=== PATIENT | female | born 1960 | race Caucasian/White ===

== ENCOUNTER 2019-11-05 16:59 | Inpatient (IN) | payer MEDICAID ==
[~2019-11-05] VITALS: Ht 157.5 cm; Wt 85.3 kg
[2019-11-06] VITALS (7 sets, daily range): BP systolic 99–110; BP diastolic 65–76
[2019-11-06] MEDS ORDERED: LORazepam 0.5 MG TAB PO ONE
[2019-11-06] MEDS ORDERED: levoFLOXacin 250 MG TAB PO ONE
[2019-11-06] MEDS ORDERED: LORazepam 2MG/ML-1ML VIAL IM ONE (02:00)
[2019-11-06 02:10] LABS: Alanine Aminotransferase 359 U/L (13-56); Albumin 3.4 g/dL (3.4-5.0); Anion Gap 27 (5-15); Aspartate Aminotransferase 682 U/L (15-37); BUN/Creatinine Ratio 23.6; Blood Urea Nitrogen 42 mg/dL (7-18); Calcium 9.1 mg/dL (8.5-10.1); Chloride 95 mmol/L (98-107); GFR African American 37 mL/min; GFR Non-African American 31 mL/min; Potassium 5.1 mmol/L (3.5-5.1); Sodium 128 mmol/L (136-145)
[2019-11-06 02:13] LABS: Alkaline Phosphatase 148 U/L (45-117); Total Protein 7.2 g/dL (6.4-8.2)
[2019-11-06 02:18] LABS: Basophils # (auto) 0 10 ^3/uL (0-0.2); Eosinophils # (auto) 0 10 ^3/uL (0-0.8); Eosinophils % (auto) 0.1 % (0.0-7.0); Lymphocytes # (auto) 0.8 10 ^3/uL (0.4-5.4); Mean Corpuscular Hgb Conc. 28.5 g/dL (32.0-36.0)
[2019-11-06 02:20] LABS: Basophils % (auto) 0.1 % (0.0-2.0); Hemoglobin 14.5 g/dL (12.2-16.2); Lymphocytes % (auto) 6.3 % (10.0-50.0); Mean Corpuscular Hemoglobin 29.8 pg (28.0-32.0); Mean Corpuscular Volume 104.6 fL (80.0-100.0); Monocytes # (auto) 0.6 10 ^3/uL (0-1.3); Monocytes % (auto) 4.3 % (0.0-12.0); Neutrophils # (auto) 11.4 10 ^3/uL (1.6-8.6); Neutrophils % (auto) 89.2 % (37.0-80.0); Nucleated Red Blood Cells % 0.4 %; Platelet Count (auto) 195 10^3/uL (140-450); Red Blood Cells 4.88 10^6/uL (4.0-5.20); Red Cell Distribution Width 17.7 % (11.8-14.3); White Blood Cell 12.8 10^3/uL (4.4-10.8)
[2019-11-06 02:22] LABS: Lactic Acid w/Reflex 16.4 mmol/L (0.4-2.0)
[2019-11-06 02:23] LABS: Carbon Dioxide 6 mmol/L (21-32); Glucose 40 mg/dL (74-106)
[2019-11-06] MEDS ORDERED: DEXTROSE 50% SYRINGE 50 ML IV ONE (02:28)
[2019-11-06] MEDS ORDERED: DEXTROSE (50%) 50ML SYRG IV ONE (02:45)
[2019-11-06] MEDS ORDERED: SODIUM BICARBONATE 8.4% INJ 50ML SYRINGE ONE ×2 (03:10→06:38)
[2019-11-06] MEDS ORDERED: SODIUM CHLORIDE 0.9% 2,000 ML IV ONE (03:15)
[2019-11-06] MEDS ORDERED: SODIUM BICARBONATE 8.4 % INJ 50ML VIAL IV ONE (03:15)
[2019-11-06] MEDS ORDERED: FUROSEMIDE 20 MG/2 ML VIAL ONE (03:42)
[2019-11-06] MEDS ORDERED: VANCOMYCIN 1GM/250ML 250 ML IV ONE (03:45)
[2019-11-06] MEDS ORDERED: FUROSEMIDE 20 MG/2 ML VIAL IV ONE ×2 (03:45→14:00)
[2019-11-06] MEDS ORDERED: cefTRIAXone 1GM/50ML D5W 50 ML IV ONE (03:45)
[2019-11-06] MEDS ORDERED: D5W/SOD CHLO 0.9% 1,000 ML IV ONE (03:45)
[2019-11-06] MEDS ORDERED: SUCCINYLCHOLINE CHLORIDE 20 MG/ML 10ML VIAL IV ONE ×2 (04:12→04:15)
[2019-11-06] MEDS ORDERED: ETOMIDATE (2MG/ML) 20ML VIAL IV ONE ×2 (04:12→04:15)
[2019-11-06] MEDS: MIDAZOLAM DRIP 50 mg/50mL 50 ML IV SCH ×2 (04:45→22:52)
[2019-11-06 05:04] LABS: Urine Amorphous Crystal FEW /hpf (None Seen); Urine Bacteria MOD /hpf (None Seen); Urine Blood 2+ /uL (Negative); Urine Hyaline Cast MANY /lpf (0 - 2); Urine Mucus FEW (None Seen); Urine Specific Gravity 1.023 (1.001-1.035); Urine WBC 20 /hpf (0 - 5)
[2019-11-06] MEDS ORDERED: SODIUM BICARBONATE 50ML VIAL 100 ML in SOD CHL 0.45% 1,000 ML IV SCH (05:15)
[2019-11-06] MEDS ORDERED: ONDANSETRON HCL 4 MG/2 ML VIAL IV PRN (05:15)
[2019-11-06] MEDS ORDERED: NITROGLYCERIN 0.4 MG SL TAB SL PRN (05:15)
[2019-11-06] MEDS ORDERED: VANCOMYCIN PER PHARMACY 0 MG IV SCH (05:15)
[2019-11-06] MEDS ORDERED: DEXTROSE (50%) 50ML SYRG IV PRN (05:15)
[2019-11-06] MEDS ORDERED: MORPHINE SULF INJ 2 MG/ML SYRINGE 1ML IV PRN (05:15)
[2019-11-06 06:00] LABS: Alcohol, Urine < 3.0 mg/dL (0-10); Amphetamine Screen, Urine NEGATIVE (NEGATIVE); Barbiturate Scree,Urine NEGATIVE (NEGATIVE); Benzodiazephine Screen, Urine POSITIVE (NEGATIVE); Cannabinoid Screen, Urine NEGATIVE (NEGATIVE); Cocaine Screen, Urine NEGATIVE (NEGATIVE); Opiate Scree,Urine NEGATIVE (NEGATIVE); Phencyclidine Screen, Urine NEGATIVE (NEGATIVE)
[2019-11-06] MEDS: InsuLIN REG 1unit/0.01ml Soln (100units/ml) SC SCH ×3 (06:00→18:21)
[2019-11-06] MEDS: ACCU-CHEK COMFORT CURVE STRIP VI SCH ×4 (06:10→23:52)
[2019-11-06] MEDS: D5W/SOD CHLO 0.9% 1,000 ML IV SCH ×2 (06:12→08:27)
[2019-11-06] MEDS: PIPERACILLIN-TAZOB 2.25GM 50 ML IV SCH ×3 (08:26→18:20)
[2019-11-06] MEDS: NOREPINEPHRINE 8 MG/250ML KIT 250 ML IV SCH (08:27)
--- NOTE | 2019-11-06 09:45 | NUR ---
WOUND CARE NOTE: PATIENT NOTED TO BE INTUBATED, SEDATED IN ER, AIRBORNE ISOLATION. ADDED PATIENT TO SKIN INTEGRITY MONITORING. PATIENT'S JAMAL SCORE ASSESSED AT 10. PATIENT RESTING ON ICU LOW AIRLOSS BED. SKIN/WOUND CARE PLAN IMPLEMENTED. PER BEDSIDE NURSE, PATIENT HAS NO SKIN ISSUES. SHE WOULD BENEFIT FROM: FREQUENT TURN SCHEDULE Q 2HOURS, PRN CONDITION PERMITS, WITH PRESSURE REDISTRIBUTION USING PILLOWS/WEDGES, BID/PRN APPLICATION WITH MOISTURE BARRIER CREAM, OPTIFOAM GENTLE SACRAL DRESSING PREVENTATIVE, DIETARY CONSULT FOR INTUBATION STATUS, SKIN/WOUND CARE PLAN, CONTINUED MONITORING BY WOUND CARE TEAM.
[2019-11-06] MEDS ORDERED: Jevity 1.2 Cal/Fiber 1 Liter GT SCH (11:45)
[2019-11-06 11:57] LABS: Hematocrit 37.9 % (36.0-46.0); Hemoglobin 12.1 g/dL (12.2-16.2); Mean Corpuscular Hemoglobin 29.8 pg (28.0-32.0); Mean Corpuscular Hgb Conc. 31.9 g/dL (32.0-36.0); Mean Corpuscular Volume 93.2 fL (80.0-100.0); Platelet Count (auto) 127 10^3/uL (140-450); Red Blood Cells 4.07 10^6/uL (4.0-5.20); White Blood Cell 11.7 10^3/uL (4.4-10.8)
[2019-11-06 11:58] LABS: Band Neutrophils % (manual) 0; Basophils % (manual) 0 (0.0-2.0); Blast Cells 0; Eosinophils % (manual) 0 (0-7); Metamyelocytes % 0; Monocytes % (manual) 0 (0-12); Promyelocytes % 0; Reactive Lymphocytes 0
[2019-11-06 12:15] LABS: Calcium 7.7 mg/dL (8.5-10.1); Potassium 4.7 mmol/L (3.5-5.1)
[2019-11-06 12:23] LABS: Lymphocytes % (manual) 9 (10.0-50.0); Myelocytes % 1
[2019-11-06 12:27] LABS: INR 2.97 (0.9-1.15); Partial Thromboplastin Time 48.4 sec (23.64-32.05)
[2019-11-06 12:34] LABS: Albumin 2.6 g/dL (3.4-5.0); BUN/Creatinine Ratio 31.7; Bilirubin, Total 3.3 mg/dL (0.2-1.0); Total Protein 5.4 g/dL (6.4-8.2)
[2019-11-06] MEDS: DOBUTamine 1000MCG/ML 250 ML IV SCH (14:00)
[2019-11-06] MEDS ORDERED: ENOXAPARIN SOD 80 MG/0.8ML SYRINGE SC ONE (14:15)
[2019-11-06 15:09] LABS: Magnesium 2.2 mg/dL (1.6-2.6)
[2019-11-06] MEDS: fentaNYL Drip 2500mCg/250mlNS 250 ML IV SCH (15:09)
[2019-11-06] MEDS ORDERED: D5W/SOD CHLO 0.9% 1,000 ML IV SCH (16:30)
[2019-11-06] MEDS: FUROSEMIDE 20 MG/2 ML VIAL IV SCH (18:19)
[2019-11-07] VITALS (38 sets, daily range): BP systolic 89–115; BP diastolic 50–75
[2019-11-07] MEDS: PIPERACILLIN-TAZOB 2.25GM 50 ML IV SCH ×4 (00:06→18:03)
[2019-11-07] MEDS: InsuLIN REG 1unit/0.01ml Soln (100units/ml) SC SCH ×4 (00:06→18:09)
[2019-11-07] MEDS: DOBUTamine 1000MCG/ML 250 ML IV SCH ×3 (00:42→17:12)
[2019-11-07 01:26] LABS: Albumin 2.5 g/dL (3.4-5.0); BUN/Creatinine Ratio 37.7; Calcium 7.5 mg/dL (8.5-10.1); Potassium 3.3 mmol/L (3.5-5.1)
[2019-11-07 01:34] LABS: Bilirubin, Total 3.5 mg/dL (0.2-1.0); Total Protein 5.4 g/dL (6.4-8.2)
[2019-11-07] MEDS: MIDAZOLAM DRIP 50 mg/50mL 50 ML IV SCH ×5 (03:05→19:31)
[2019-11-07] MEDS: NOREPINEPHRINE 8 MG/250ML KIT 250 ML IV SCH ×2 (04:12→12:08)
[2019-11-07] MEDS: ACCU-CHEK COMFORT CURVE STRIP VI SCH ×3 (05:36→18:08)
[2019-11-07] MEDS: FUROSEMIDE 20 MG/2 ML VIAL IV SCH ×2 (05:59→18:03)
[2019-11-07] MEDS: VANCOMYCIN 1GM/250ML 250 ML IV SCH (06:00)
[2019-11-07 06:08] LABS: Basophils # (auto) 0.1 10 ^3/uL (0-0.2); Basophils % (auto) 1.1 % (0.0-2.0); Eosinophils # (auto) 0 10 ^3/uL (0-0.8); Hematocrit 42.1 % (36.0-46.0); Hemoglobin 13.7 g/dL (12.2-16.2); Lymphocytes # (auto) 0.3 10 ^3/uL (0.4-5.4); Lymphocytes % (auto) 2.8 % (10.0-50.0); Mean Corpuscular Hemoglobin 29.9 pg (28.0-32.0); Mean Corpuscular Hgb Conc. 32.4 g/dL (32.0-36.0); Mean Corpuscular Volume 92.3 fL (80.0-100.0); Monocytes # (auto) 0.3 10 ^3/uL (0-1.3); Monocytes % (auto) 3.2 % (0.0-12.0); Neutrophils % (auto) 92.9 % (37.0-80.0); Nucleated Red Blood Cells % 0.5 %; Platelet Count (auto) 105 10^3/uL (140-450); Red Blood Cells 4.56 10^6/uL (4.0-5.20); White Blood Cell 10.7 10^3/uL (4.4-10.8)
[2019-11-07] MEDS: POTASSIUM CHL 20MEQ/100ML 100 ML IV SCH ×3 (08:44→12:09)
[2019-11-07] MEDS: ENOXAPARIN SOD 80 MG/0.8ML SYRINGE SC SCH (08:56)
[2019-11-07] MEDS: CARVEDILOL 3.125 MG TAB PO SCH ×2 (08:57→22:00)
[2019-11-07] MEDS ORDERED: FUROSEMIDE 20 MG/2 ML VIAL IV SCH (10:00)
[2019-11-07] MEDS: POTASSIUM EFFERVESENT TAB 25 MEQ PO SCH ×2 (10:14→22:00)
[2019-11-07] MEDS: PANTOPRAZOLE 40 MG/10 ML VIAL INJ IV SCH ×2 (10:14→22:00)
[2019-11-07] MEDS ORDERED: PROPOFOL 100 ML IV ONE (11:30)
[2019-11-07] MEDS: PROPOFOL 100 ML IV SCH ×2 (11:41→17:12)
[2019-11-07] MEDS: fentaNYL Drip 2500mCg/250mlNS 250 ML IV SCH ×2 (15:09→20:05)
--- NOTE | 2019-11-07 15:39 | NUR ---
Nutrition Consult/assessment Notes Please see attached link for complete assessment [employer] needs ABW 65 [id number] kcals (23-25 kcal/kgABW), Est Protein needs: 65-71 gms/day (1.0-1.1 gm/kgABW). Will continue to monitor and reassess prn. Rec: EN support with Osmolite @ 55 ml/hr per MD approval Addendum: 11/07/19 at [address] Amended: Links added.
--- NOTE | 2019-11-07 16:30 | NUR ---
RT Transport Note: Patient transported to ICU 112 with RN CHUY LOJA. Patient transported to and from procedure on ventilator with previous ordered settings. Patient on playground monitor with alarms set and audible, ambu-bag/mask connected to 02 tank. Patient returned to room with no adverse reaction noted. Transport completed without incident.
--- NOTE | 2019-11-07 16:42 | NUR ---
Admit to ICU from ER on vent ARVIND LANDAVERDEAadmitted to ICU via gurney on fish net maker, intubated and being bagged by Respiratory Therapist. Patient transfered to bed, connected to mechanical ventilator by therapist, CIARAN at bedside. Patient connected to ICU monitoring, weighed by bedscale, oriented to Felice shepard RN, unit, ventilator and sedation.
--- NOTE | 2019-11-07 20:24 | NUR ---
report report given to GURJIT Arechiga
[2019-11-07] MEDS ORDERED: POTASSIUM EFFERVESENT TAB 25 MEQ GT SCH (22:00)
[2019-11-08] VITALS (102 sets, daily range): BP systolic 83–119; BP diastolic 59–78
[2019-11-08] MEDS: InsuLIN REG 1unit/0.01ml Soln (100units/ml) SC SCH ×4 (00:09→17:55)
[2019-11-08] MEDS: DOBUTamine 1000MCG/ML 250 ML IV SCH (04:00)
[2019-11-08 04:21] LABS: Basophils # (auto) 0 10 ^3/uL (0-0.2); Basophils % (auto) 0.1 % (0.0-2.0); Eosinophils # (auto) 0 10 ^3/uL (0-0.8); Eosinophils % (auto) 0.2 % (0.0-7.0); Hematocrit 40.3 % (36.0-46.0); Hemoglobin 13.2 g/dL (12.2-16.2); Lymphocytes # (auto) 0.6 10 ^3/uL (0.4-5.4); Lymphocytes % (auto) 5.3 % (10.0-50.0); Mean Corpuscular Hemoglobin 29.6 pg (28.0-32.0); Mean Corpuscular Hgb Conc. 32.6 g/dL (32.0-36.0); Mean Corpuscular Volume 90.7 fL (80.0-100.0); Monocytes # (auto) 0.5 10 ^3/uL (0-1.3); Monocytes % (auto) 3.9 % (0.0-12.0); Neutrophils # (auto) 10.8 10 ^3/uL (1.6-8.6); Neutrophils % (auto) 90.5 % (37.0-80.0); Nucleated Red Blood Cells % 0.1 %; Platelet Count (auto) 122 10^3/uL (140-450); Red Blood Cells 4.44 10^6/uL (4.0-5.20); White Blood Cell 11.9 10^3/uL (4.4-10.8)
[2019-11-08 04:41] LABS: Albumin 2.1 g/dL (3.4-5.0); Calcium 7.3 mg/dL (8.5-10.1); Potassium 4.8 mmol/L (3.5-5.1)
[2019-11-08 04:45] LABS: BUN/Creatinine Ratio 30.2; Total Protein 5.1 g/dL (6.4-8.2)
[2019-11-08] MEDS: PIPERACILLIN-TAZOB 2.25GM 50 ML IV SCH ×4 (05:13→17:45)
[2019-11-08] MEDS: MIDAZOLAM DRIP 50 mg/50mL 50 ML IV SCH ×2 (05:16→22:31)
[2019-11-08] MEDS: FUROSEMIDE 20 MG/2 ML VIAL IV SCH ×2 (05:32→17:46)
[2019-11-08] MEDS: ACCU-CHEK COMFORT CURVE STRIP VI SCH ×4 (05:39→17:46)
--- NOTE | 2019-11-08 08:00 | NUR ---
Cooling Measures applied. Patient currently has temp of 100.9 , cooling measures in place.
[2019-11-08] MEDS: VANCOMYCIN 1GM/250ML 250 ML IV SCH (09:00)
[2019-11-08] MEDS: NOREPINEPHRINE 8 MG/250ML KIT 250 ML IV SCH (09:30)
[2019-11-08] MEDS: PANTOPRAZOLE 40 MG/10 ML VIAL INJ IV SCH ×2 (09:36→22:26)
[2019-11-08] MEDS: CARVEDILOL 3.125 MG TAB PO SCH ×2 (09:37→22:25)
[2019-11-08] MEDS: ENOXAPARIN SOD 80 MG/0.8ML SYRINGE SC SCH ×2 (09:37→12:00)
--- NOTE | 2019-11-08 10:00 | NUR ---
DHIRAJ HELD PATIENT NOTED TO HAVE DARK RED BLOOD NOTED VIA ETT. TO BE NOTIFIED. Addendum: 11/08/19 at 1555 by Abbie Rendon RN REVIEWED WITH MD AT BEDSIDE DHIRAJ WAS HELD. STATED OK TO GIVE MEDICATION. BLEEDING TO BE MONITORED.
--- NOTE | 2019-11-08 10:41 | NUR ---
ACCOUNTS RECEIVABLE MANAGER HENRI RICKS UPDATED ON PATIENT STATUS. MAILROOM SUPERVISOR AWARE OF HR 110-115. MAILROOM SUPERVISOR AWARE PATIENT STARTING TO RUN LOW FEVER 100.[address] IN PL[address]. MAILROOM SUPERVISOR STATING IF PATIENTS TACHYCARDIA DOES NOT SUBSIDE WITH COOLING MEASURES, PATIENT TO BE SWITCHED TO NEOSYNEPHRINE.
--- NOTE | 2019-11-08 10:41 | NUR ---
LASIX MORNING LASIX HELD BY NOC SHIFT DUE TO HYPOTENSION. AWARE. PER DR. AQUINO ALBUMIN TO BE GIVEN AND LASIX TO FOLLOW. 40MG IV LASIX ORDERED X1 FOR 0600 DOSE.
[2019-11-08] MEDS ORDERED: FUROSEMIDE 40 MG/4 ML VIAL IV ONE (10:45)
[2019-11-08] MEDS: ALBUMIN 25% 100 ML IV SCH ×2 (10:57→17:45)
[2019-11-08] MEDS: fentaNYL Drip 2500mCg/250mlNS 250 ML IV SCH (10:59)
--- NOTE | 2019-11-08 11:20 | NUR ---
assessment Patient is a 58 year old female who is on a vent in ICU. Per patients prior to admission patient live home with him and was independent. Patient has no need for DME or oxygen prior to admission per Jraon. Jaron informed me patient is Jehovah witness and does NOT take blood. Patient has no PCP. Patient has no insurance. Patient is over income and is a self pay. Per Jaron patient was sick for a week. Patient was having shortness of breath and vomiting so he called 911. Patient was admitted and put on a vent. I informed Jaron patients post discharge needs to be determined after extubation and prior to discharge. Jaron verbalized understanding. Addendum: 11/08/19 at 1128 by Carla MONTOYA Amended: Links added.
--- NOTE | 2019-11-08 12:00 | NUR ---
AT BEDSIDE DR. AQUINO UPDATED ON PATIENTS STATUS. NEW ORDERS IN PLACE. LEVOPHED TO BE TITRATED DOWN AND JENNY TO BE STARTED AT DOUBLE CONCENTRATION.
[2019-11-08] MEDS: PHENYLEPHRINE INJ 40 MG in SODIUM CHL 0.9% 250 ML IV SCH (14:32)
[2019-11-08] MEDS: DOBUTamine HCL 500 MG in D5W 5% 210 ML IV SCH (14:32)
--- NOTE | 2019-11-08 14:55 | NUR ---
Tube feedings restarted No gastric residual aspirated. Tube feedings restarted at 15ml/hr as ordered. Aspiration precautions in place.
--- NOTE | 2019-11-08 18:50 | NUR ---
Family updated on pt status Family of AKHILCRIS updated on patient's status and condition. All questions and concerns addressed. , Jaron verbalized understanding.
[2019-11-09] VITALS (104 sets, daily range): BP systolic 76–131; BP diastolic 47–93
[2019-11-09] MEDS: PIPERACILLIN-TAZOB 2.25GM 50 ML IV SCH ×3 (02:07→12:07)
[2019-11-09] MEDS: ALBUMIN 25% 100 ML IV SCH (02:14)
[2019-11-09] MEDS: PHENYLEPHRINE INJ 40 MG in SODIUM CHL 0.9% 250 ML IV SCH ×2 (03:23→14:13)
[2019-11-09] MEDS: MIDAZOLAM DRIP 50 mg/50mL 50 ML IV SCH (04:12)
[2019-11-09] MEDS: FUROSEMIDE 20 MG/2 ML VIAL IV SCH ×2 (05:18→18:41)
[2019-11-09] MEDS: InsuLIN REG 1unit/0.01ml Soln (100units/ml) SC SCH ×4 (06:00→18:00)
[2019-11-09] MEDS: ACCU-CHEK COMFORT CURVE STRIP VI SCH ×4 (06:29→18:25)
--- NOTE | 2019-11-09 08:00 | NUR ---
Opening Shift Note Assumed care of patient, intubated and sedated. No S/S of distress/SOB or pain. See interventions for complete assessment. Bed locked on low position, side rails up x2, bed alarms on at all times, will continue to monitor for changes Q1hr and PRN.
[2019-11-09] MEDS: VANCOMYCIN 1GM/250ML 250 ML IV SCH ×2 (08:53→18:40)
[2019-11-09] MEDS: fentaNYL Drip 2500mCg/250mlNS 250 ML IV SCH (08:55)
[2019-11-09] MEDS: DOBUTamine HCL 500 MG in D5W 5% 210 ML IV SCH (08:55)
--- NOTE | 2019-11-09 09:28 | NUR ---
Sheryl Pepe ACETYLENE TORCH OPERATOR at bedside, updated on patient's status. Patient seen and examined. Will carry out new orders.
--- NOTE | 2019-11-09 09:30 | NUR ---
Spoke to Dr Boyle over the phone, updated on patient's status. Plan to CAP patient today. Tube feeding and sedation turned off. Will continue to monitor patient.
[2019-11-09] MEDS: CARVEDILOL 3.125 MG TAB PO SCH ×2 (10:00→22:19)
--- NOTE | 2019-11-09 10:20 | NUR ---
Received call from patient's Jaron who's able to provide password. Updated on patient's status and POC, verbalized understanding. All questions and concerns addressed.
[2019-11-09] MEDS: ENOXAPARIN SOD 80 MG/0.8ML SYRINGE SC SCH (10:35)
[2019-11-09] MEDS: PANTOPRAZOLE 40 MG/10 ML VIAL INJ IV SCH ×2 (10:35→22:19)
[2019-11-09 10:54] LABS: Basophils # (auto) 0 10 ^3/uL (0-0.2); Basophils % (auto) 0.5 % (0.0-2.0); Eosinophils # (auto) 0.1 10 ^3/uL (0-0.8); Eosinophils % (auto) 1.6 % (0.0-7.0); Hematocrit 34.8 % (36.0-46.0); Hemoglobin 11.4 g/dL (12.2-16.2); Lymphocytes # (auto) 0.6 10 ^3/uL (0.4-5.4); Lymphocytes % (auto) 6.9 % (10.0-50.0); Mean Corpuscular Hemoglobin 30.1 pg (28.0-32.0); Mean Corpuscular Hgb Conc. 32.7 g/dL (32.0-36.0); Mean Corpuscular Volume 91.9 fL (80.0-100.0); Monocytes # (auto) 0.5 10 ^3/uL (0-1.3); Monocytes % (auto) 6.1 % (0.0-12.0); Neutrophils # (auto) 7.6 10 ^3/uL (1.6-8.6); Neutrophils % (auto) 84.9 % (37.0-80.0); Nucleated Red Blood Cells % 0.1 %; Platelet Count (auto) 75 10^3/uL (140-450); Red Blood Cells 3.78 10^6/uL (4.0-5.20); Red Cell Distribution Width 16.5 % (11.8-14.3)
--- NOTE | 2019-11-09 11:00 | NUR ---
Patient open eyes to voice but no sustained eye contact. Will continue to monitor.
--- NOTE | 2019-11-09 11:10 | NUR ---
Dr Boyle at bedside, updated on patient's status. Patient seen and examined. Will carry out new orders.
[2019-11-09 11:13] LABS: Potassium 3.5 mmol/L (3.5-5.1)
[2019-11-09 11:19] LABS: BUN/Creatinine Ratio 25.9; Bilirubin, Total 3.3 mg/dL (0.2-1.0); Calcium 7.8 mg/dL (8.5-10.1)
[2019-11-09] MEDS: PROPOFOL 100 ML IV SCH (11:26)
[2019-11-09] MEDS: NOREPINEPHRINE 8 MG/250ML KIT 250 ML IV SCH (11:26)
--- NOTE | 2019-11-09 14:00 | NUR ---
Patient opens eyes to voice but not following commands. Will continue to monitor.
--- NOTE | 2019-11-09 14:05 | NUR ---
Nutrition Followup Notes Wt: 118.0 kg Pt`s intubated sedated with no family by bedside. pt is currently NPO with EN support on hold for poss CPAP per RN. pt was on EN support with Osmolite @ 15 ml/hr [employer] needs ABW 65 [id number] kcals (23-25 kcal/kgABW), Est Protein needs: 65-71 gms/day (1.0-1.1 gm/kgABW). Will continue to monitor and reassess prn. LABS: BUN 29 H, CO2 34 H, GLU 155 H, ALB 2.1 L GI: Pt has no BM, reported per RN doc. BS: 11 high risk. Refer to wound assessment report for full details. PES: Altered nutrition related lab values r.t current chronic medical condition aeb elev RFT mod hypoalb hypocalcemia, hyperglycemia Impaired swallowing r.t current medical condition aeb pt`s intubated sedated with order of NPO Comments Will continue to monitor NPO status, skin status, pertinent labs and weight trends. Will f/u in 2-3 days. 1) consider EN support with Osmolite @ 55 ml/hr per MD approval if pt fails CPAP. 2) consider MVI/C bid. 3) advance diet as medically feasible. 4) continue current plan of care
--- NOTE | 2019-11-09 16:30 | NUR ---
FAILED CPAP TRIAL PT WAKING UP A LITTLE MORE AND MOVING AROUND, INITIATED CPAP TRIAL PS 7, PEEP +5, FIO2 30%. PT FAILED CPAP TRIAL AFTER 2 MINUTES, DID NOT TOLERATED WELL, WITH INCREASED RR 40, LOW VT 140. PLACED PT BACK ON AC MODE PREVIOUS SETTINGS, PT RETURNED BACK TO BASELINE, TOLERATING AC MODE. GURJIT BRIDGES AT BEDSIDE AND AWARE. WILL ENDORSE CARE TO NOC SHIFT RT.
--- NOTE | 2019-11-09 19:36 | NUR ---
12 LEAD EKG DONE FOR CHANGE IN RHYTHM ON ELECTRICAL HELPER. 12 LEAD SHOWS A FIB RVR WITH RATE OF 151 BPM. SEDATION RESTARTED DUE TO FAILED CPAP TRIAL. JENNY RUNNING AT 40 MCG, BP STABLE AT THIS TIME. PAGED MD MENDES AND AWAITING CALL BACK.
--- NOTE | 2019-11-09 19:45 | NUR ---
ATTEMPTED TO COMMUNICATE WITH HENRI RICKS TO UPDATE HER ON PT CONDITION. AWAITING CALLBACK FROM HER OR DR. MENDES.
--- NOTE | 2019-11-09 19:45 | NUR ---
MD MENDES PAGED AGAIN FOR A FIB RVR RATE OF 157-170 BPM. AWAITING CALLBACK.
--- NOTE | 2019-11-09 20:03 | NUR ---
MD MENDES PAGED AGAIN. AWAITING CALL BACK. PT STILL RUNNING A FIB RVR, BP DECREASING (INCREASING PRESSORS PER PROTOCOL- SEE IV SPREADSHEET FOR VITALS AND TITRATIONS).
--- NOTE | 2019-11-09 20:06 | NUR ---
PT CONVERTED TO A FIB WITH A RATE OF 65 AT THIS TIME. WILL MONITOR. STILL AWAITING CALLBACK FROM CARDIOLOGY CIRCUIT RECORDER/ DR. MENDES.
--- NOTE | 2019-11-09 20:11 | NUR ---
PT CONVERTED BACK TO A FIB RVR WITH RATE IN 180'S-190'S.
--- NOTE | 2019-11-09 20:17 | NUR ---
SECOND 12 LEAD EKD DONE- SHOWING A FLUTTER WITH AV BLOCK RATE OF 164. STILL AWAITING CALLBACK FROM MD/DIRECTOR CALL.
--- NOTE | 2019-11-09 20:20 | NUR ---
PAGED DR MENDES AGAIN. WILL PAGE HOSPITALIST DUE TO PT STILL RUNNING AFIB/AFLUTTER WITH RVR.
[2019-11-09] MEDS ORDERED: METOPROLOL TARTRATE 1MG/1ML-5ML VIAL IV ONE (20:32)
--- NOTE | 2019-11-09 20:33 | NUR ---
MD TREVIZO AT BEDSIDE. MADE HIM AWARE OF PT CONDITION- INCREASING VASOPRESSOR THERAPY, TWO 12 LEADS DONE, HR, AND THAT CARDIO WAS PAGED MULTIPLE TIMES WITHOUT A RESPONSE. NEW ORDERS RECEIVED TO GIVE METOPROLOL 5 MG Q5 X3 FOR A FIB. WILL EXECUTE YULISSA.
--- NOTE | 2019-11-09 20:35 | NUR ---
FIRST DOSE OF METOPROLOL 5 MG GIVEN AT 2034 SECOND DOSE- 2044 THIRD DOSE- 2050 PT RATE HAS NOT DECREASED AND RHYTHM STILL A FIB.
[2019-11-09] MEDS: METOPROLOL TARTRATE 1MG/1ML-5ML VIAL IV SCH ×2 (20:44→20:53)
--- NOTE | 2019-11-09 21:05 | NUR ---
PAGED MD TREVIZO TO MAKE HIM AWARE THAT PT HAS YET TO CONVERT. SAID NO NEW ORDERS AT THIS TIME AND CONTINUE TO TRY AND CONTACT CARDIO. STILL AWAITING CALLBACK FROM HENRI RICKS/ MD MENDES.
--- NOTE | 2019-11-09 21:10 | NUR ---
HENRI RICKS REPLIED UPDATED HER ON PT CONDITION, EKG RHYTHM/HR, METOPROLOL GIVEN, AND INCREASING VASOPRESSORS. PT CONVERTED TO A FIB WITH A RATE OF 64 WHILE UPDATING HENRI RICKS AT 2114. RAMBO SAID TO GIVE DIGOXIN 500 MCG IV X1 AND START AMIO PER PROTOCOL WITH BOLUS IF PT CONVERTS BACK INTO A FIB RVR. WILL HOLD OFF ON THOSE ORDERS AT THIS TIME DUE TO PT BEING STABLE. RAND MAKER AWARE AND SAID OK TO GIVE MEDS IF PT CONVERTS TO A FIB RVR.
[2019-11-10] VITALS (105 sets, daily range): BP systolic 76–113; BP diastolic 45–76
[2019-11-10] MEDS: ACCU-CHEK COMFORT CURVE STRIP VI SCH ×4 (00:17→17:49)
[2019-11-10] MEDS ORDERED: PHENYLEPHRINE HCL 10 MG/ML VL ONE (02:32)
--- NOTE | 2019-11-10 03:15 | NUR ---
PT CARE GAVE PT CHG/BED BATH. ORAL CARE DONE AND PT TURNED. SKIN ASSESSED WITH NO NEW CHANGES AT THIS TIME. PT TOLERATED ACTIVITY WELL WITH NO S/S OF DISTRESS NOTED. FULL BRITANY AND GOWN CHANGE DONE.
[2019-11-10 04:35] LABS: Basophils # (auto) 0 10 ^3/uL (0-0.2); Basophils % (auto) 0.3 % (0.0-2.0); Eosinophils # (auto) 0.1 10 ^3/uL (0-0.8); Eosinophils % (auto) 0.9 % (0.0-7.0); Hematocrit 39.3 % (36.0-46.0); Hemoglobin 12.6 g/dL (12.2-16.2); Lymphocytes # (auto) 0.9 10 ^3/uL (0.4-5.4); Lymphocytes % (auto) 9.4 % (10.0-50.0); Mean Corpuscular Hemoglobin 29.4 pg (28.0-32.0); Mean Corpuscular Hgb Conc. 32.1 g/dL (32.0-36.0); Mean Corpuscular Volume 91.7 fL (80.0-100.0); Monocytes # (auto) 0.8 10 ^3/uL (0-1.3); Monocytes % (auto) 7.8 % (0.0-12.0); Neutrophils % (auto) 81.6 % (37.0-80.0); Nucleated Red Blood Cells % 0.5 %; Platelet Count (auto) 103 10^3/uL (140-450); Red Blood Cells 4.28 10^6/uL (4.0-5.20); Red Cell Distribution Width 16.5 % (11.8-14.3); White Blood Cell 9.8 10^3/uL (4.4-10.8)
[2019-11-10 04:56] LABS: BUN/Creatinine Ratio 20.9; Calcium 8.2 mg/dL (8.5-10.1); Potassium 4.3 mmol/L (3.5-5.1)
[2019-11-10] MEDS: FUROSEMIDE 40 MG/4 ML VIAL IV SCH ×2 (05:55→17:47)
[2019-11-10] MEDS: InsuLIN REG 1unit/0.01ml Soln (100units/ml) SC SCH ×4 (05:56→17:49)
[2019-11-10] MEDS: VANCOMYCIN 1GM/250ML 250 ML IV SCH (06:45)
[2019-11-10] MEDS: DOBUTamine HCL 500 MG in D5W 5% 210 ML IV SCH (06:53)
[2019-11-10] MEDS: PHENYLEPHRINE INJ 40 MG in SODIUM CHL 0.9% 250 ML IV SCH ×4 (06:54→17:52)
[2019-11-10] MEDS ORDERED: MAGNESIUM SULFATE 1GM/100ML 100 ML IV ONE (07:00)
[2019-11-10] MEDS: cefTRIAXone 1GM/50ML D5W 50 ML IV SCH (08:50)
[2019-11-10] MEDS: AMIODARONE 450mg/250ml AE 250 ML IV SCH ×4 (09:00→23:00)
[2019-11-10] MEDS: PANTOPRAZOLE 40 MG/10 ML VIAL INJ IV SCH ×2 (10:39→22:00)
[2019-11-10] MEDS: CARVEDILOL 3.125 MG TAB PO SCH ×2 (10:40→21:53)
[2019-11-10] MEDS: PROPOFOL 100 ML IV SCH (11:26)
[2019-11-10] MEDS: NOREPINEPHRINE 8 MG/250ML KIT 250 ML IV SCH ×3 (11:26→23:33)
[2019-11-10] MEDS ORDERED: ACETAMINOPHEN 650 mg PER 20 mL UD GT PRN (11:45)
[2019-11-10] MEDS: MIDAZOLAM DRIP 50 mg/50mL 50 ML IV SCH ×2 (11:54→23:31)
[2019-11-10] MEDS: fentaNYL Drip 2500mCg/250mlNS 250 ML IV SCH ×2 (15:09→23:33)
--- NOTE | 2019-11-10 15:40 | NUR ---
Assumed care of patient endorsed by Primary RN for lunch break. Administered Amiodarone IV scheduled drip. Will continue to monitor.
--- NOTE | 2019-11-10 18:51 | NUR ---
Resumed care at 0730, orders reviewed and ongoing assessments being done. Being treated for multiple problems and remains intubated and sedated. Dr. Lawson rounded at 1045, discussed condition and plan of care. Made him aware that during the prior shift she went into AFIB RVR. Sheryl ÁLVAREZ (covering cardiology) rounded at start of shift and reviewed medications. Initiated amiodarone infusion and magnesium was given earlier today. Has not gone into AFIB nor runs of VT. No SPAP trial for today. Continuing to titrated vasopressors for hemodynamic stability as appropriate. Levophed Gtt had to be restarted at 1247. Vasopressors infusing via right SCV TLC. Continued with cooling measures throughout the shift. Max temperature for the day 101.1 rectally. Spoke with Jaron at 1056 earlier today. Continue current plan of care.
--- NOTE | 2019-11-10 19:33 | NUR ---
Kept NGT feeding off all shift secondary to labile BP. Unable to maintain HOB >30 degrees at all times.
[2019-11-10] MEDS: DOPamine 1600MCG/ML D5W 250 ML IV SCH (20:00)
--- NOTE | 2019-11-10 21:02 | NUR ---
FAMILY CALL SPOKE WITH PTS TARYN. UPDATED HIM ON PT CONDITION AND CURRENT PLAN OF CARE INCLUDING MEDICATIONS/ CARDIOLOGY INPUT OF NOW. ALL QUESTIONS AND CONCERNS ADDRESSED.
--- NOTE | 2019-11-10 21:32 | NUR ---
TUBE FEEDINGS RESUMED AT 30 ML/HR. HOB ELEVATED TO 35 DEGREES. NG TUBE POSITIVELY PLACED VIA AUSCULTATION AND ASPIRATION. WILL REASSESS PT TOLERANCE.
[2019-11-11] VITALS (98 sets, daily range): BP systolic 100–129; BP diastolic 67–90
--- NOTE | 2019-11-11 00:04 | NUR ---
BLOOD GLUCOSE/ TUBE FEEDING ASSESSMENT 0000 ACCUCHECK READS / WHEN CHECKED THREE TIMES. 1 AMP OF DEXTROSE 50% GIVEN PER MD ORDERS. WILL REASSESS. TUBE FEEDINGS RUNNING AT 30 ML/HR SINCE LAST NOTED. PT HAS >70 ML OF RESIDUAL. TF HELD FOR NOW.
[2019-11-11] MEDS: ACCU-CHEK COMFORT CURVE STRIP VI SCH ×4 (00:09→17:36)
--- NOTE | 2019-11-11 01:13 | NUR ---
BLOOD GLUCOSE/ TUBE FEEDING REASSESSMENT BLOOD GLUCOSE READS 121 AFTER 1 AMP OF DEXTROSE. TUBE FEEDINGS RESUMED AT 15 ML/HR. RESIDUALS NOW <30ML.
[2019-11-11] MEDS: DOBUTamine HCL 500 MG in D5W 5% 210 ML IV SCH ×2 (01:59→20:43)
[2019-11-11] MEDS: AMIODARONE 450mg/250ml AE 250 ML IV SCH ×3 (02:00→20:00)
[2019-11-11] MEDS: PHENYLEPHRINE INJ 40 MG in SODIUM CHL 0.9% 250 ML IV SCH ×3 (04:10→14:54)
[2019-11-11] MEDS: NOREPINEPHRINE 8 MG/250ML KIT 250 ML IV SCH ×2 (04:10→16:16)
--- NOTE | 2019-11-11 04:14 | NUR ---
TUBE FEEDINGS HELD DESPITE SLOWING RATE TO 15 ML/HR. PT NOTED TO HAVE RESIDUALS >60 ML AND HYPOACTIVE BOWEL SOUNDS.
[2019-11-11 04:55] LABS: Basophils # (auto) 0 10 ^3/uL (0-0.2); Basophils % (auto) 0.1 % (0.0-2.0); Eosinophils # (auto) 0 10 ^3/uL (0-0.8); Hematocrit 40.4 % (36.0-46.0); Hemoglobin 12.6 g/dL (12.2-16.2); Lymphocytes # (auto) 0.8 10 ^3/uL (0.4-5.4); Lymphocytes % (auto) 6.3 % (10.0-50.0); Mean Corpuscular Hemoglobin 29.8 pg (28.0-32.0); Mean Corpuscular Hgb Conc. 31.3 g/dL (32.0-36.0); Mean Corpuscular Volume 95.2 fL (80.0-100.0); Monocytes # (auto) 1.2 10 ^3/uL (0-1.3); Monocytes % (auto) 9.5 % (0.0-12.0); Neutrophils # (auto) 10.6 10 ^3/uL (1.6-8.6); Neutrophils % (auto) 84.1 % (37.0-80.0); Nucleated Red Blood Cells % 0.7 %; Platelet Count (auto) 112 10^3/uL (140-450); Red Blood Cells 4.24 10^6/uL (4.0-5.20); Red Cell Distribution Width 17.2 % (11.8-14.3); White Blood Cell 12.6 10^3/uL (4.4-10.8)
[2019-11-11 05:10] LABS: Albumin 2.9 g/dL (3.4-5.0); Calcium 8.3 mg/dL (8.5-10.1); Potassium 4.5 mmol/L (3.5-5.1)
[2019-11-11 05:19] LABS: Bilirubin, Total 7.6 mg/dL (0.2-1.0)
[2019-11-11] MEDS: InsuLIN REG 1unit/0.01ml Soln (100units/ml) SC SCH ×4 (05:45→18:00)
[2019-11-11] MEDS: MIDAZOLAM DRIP 50 mg/50mL 50 ML IV SCH ×2 (05:46→18:19)
[2019-11-11] MEDS: FUROSEMIDE 40 MG/4 ML VIAL IV SCH ×2 (05:46→17:57)
--- NOTE | 2019-11-11 06:00 | NUR ---
Respiratory note: RECEIVED PT FROM THERAPEUTIC DIETITIAN ON VENT V-22 PLUGGED INTO RED OUTLET. ALL VENT ALARMS ARE AUDIBLE, AND FUNCTIONING. AMBU BAG/MASK IS AT BEDSIDE CONNECTED TO AN O2 SOURCE. ETT IS 8.0 @ THE 22 LIP LINE SECURED WITH A KARIN. MOVED ETT FROM LEFT TO RIGHT. NO ORAL/SKIN BREAK DOWN NOTED. BS ARE CLEAR/DIMINISHED BILATERALLY. SX FOR SCANT AMOUNT OF THICK, BLOODY SECRETIONS. GAG REFLEX NOTED. EDEMA NOTED IN BOTH UPPER, AND LOWER EXTREMITIES. SKIN IS COOL/DRY TO THE TOUCH. RN AT BEDSIDE. NO NEW VENT CHANGES ORDERED AT THIS TIME. WILL CONTINUE TO MONITOR PT.
--- NOTE | 2019-11-11 07:04 | NUR ---
SPOKE WITH HENRI RICKS. UPDATED HER ON PT CONDITION AND EVENTS THROUGHOUT THE NIGHT. NO NEW ORDERS RECEIVED AT THIS TIME.
[2019-11-11] MEDS: cefTRIAXone 1GM/50ML D5W 50 ML IV SCH (09:09)
[2019-11-11] MEDS: PANTOPRAZOLE 40 MG/10 ML VIAL INJ IV SCH ×2 (10:17→21:59)
[2019-11-11] MEDS: PROPOFOL 100 ML IV SCH (11:26)
[2019-11-11] MEDS: LINEZOLID 600MG/300ML 300 ML IV SCH ×2 (11:42→22:00)
--- NOTE | 2019-11-11 12:12 | NUR ---
Nutrition Followup Notes Wt: 83.9 kg Per MD note pt failed CPAP trial, pt to resume sedation and intubation. pt is currently NPO with EN support on d/t high residuals per RN. pt was on EN support with Osmolite @ 15 ml/hr with >60 ml residuals per RN note. Consider restarting TF as tolerated per MD approval. [employer] needs ABW 65 [id number] kcals (23-25 kcal/kgABW), Est Protein needs: 65-71 gms/day (1.0-1.1 gm/kgABW). Will continue to monitor and reassess prn. LABS: BUN 45H, Creat 2.82H, GLUC 129H, Alb 2.9L, Ca 8.3L, CO2 19L GI: Pt has no BM, reported per RN doc. BS: 15 mod risk. Refer to wound assessment report for full details. PES: Altered nutrition related lab values r.t current chronic medical condition aeb elev RFT mod hypoalb hypocalcemia, hyperglycemia Impaired swallowing r.t current medical condition aeb pt`s intubated sedated with order of NPO Comments Will continue to monitor NPO status, skin status, pertinent labs and weight trends. Will f/u in 2-3 days. 1) consider EN support with Osmolite @ 55 ml/hr per MD approval if pt fails CPAP. 2) consider MVI/C bid. 3) advance diet as medically feasible. 4) continue current plan of care
[2019-11-11] MEDS: DOPamine 1600MCG/ML D5W 250 ML IV SCH (12:38)
[2019-11-11] MEDS ORDERED: ALBUMIN 25% 100 ML IV ONE (16:45)
[2019-11-11] MEDS ORDERED: SODIUM BICARBONATE 50ML VIAL 75 ML in SOD CHL 0.45% 1,000 ML IV SCH (16:45)
[2019-11-11 17:16] LABS: Creatinine, Urine 67 mg/dL (30.0-125.0); Sodium Urine 47 mmol/L (40-220)
[2019-11-11 17:17] LABS: Potassium 4.6 mmol/L (3.5-5.1)
[2019-11-11 17:21] LABS: BUN/Creatinine Ratio 19.2; Calcium 7.9 mg/dL (8.5-10.1)
[2019-11-11 17:32] LABS: Lactic Acid w/Reflex 2.3 mmol/L (0.4-2.0)
[2019-11-11] MEDS: SODIUM CHLORIDE 0.9% 1,000 ML IV SCH (19:30)
[2019-11-11] MEDS ORDERED: FUROSEMIDE 100 MG/10ML VIAL IV ONE (19:30)
--- NOTE | 2019-11-11 20:00 | NUR ---
RECIEVED PT VENTILATED AND MODERATELY SEDATE ON VERSED 5 MG/HR AND FENTANYL GTT AT 50 MCG/KG/MIN, U/O POOR, LASIX 80MG IV GIVEN ORDERED BY DR. JUAREZ, SEE INTERVENTIONS FOR HEAD TO TOE ASSESSMENT AND VITAL SIGNS
[2019-11-11] MEDS ORDERED: FUROSEMIDE 40 MG/4 ML VIAL ONE (20:06)
--- NOTE | 2019-11-11 20:09 | NUR ---
Resumed care at 0729, orders reviewed and ongoing assessments done. Remains intubated and sedated. No weaning trial today. Dr. Lawson rounded earlier today and reviewed medications and plan of care. Made aware of low UOP and Dr. Monk, associate professor of management was consulted. Dr. Monk was in from [id number]. Orders obtained and reviewed. Measured CVP, 9. Tube feeding was restarted in the beginning of shift and stopped at noon due to high residuals. Residuals checked throughout the shift and high gastric content with indigested tube feeding aspirated. Continue to infuse vasopressors for hemodynamic stability and titrating as appropriate.
[2019-11-12] VITALS (97 sets, daily range): BP systolic 12–137; BP diastolic 62–94
[2019-11-12] MEDS: InsuLIN REG 1unit/0.01ml Soln (100units/ml) SC SCH ×5 (00:24→23:54)
[2019-11-12] MEDS: DOPamine 1600MCG/ML D5W 250 ML IV SCH ×2 (03:00→21:54)
[2019-11-12 04:22] LABS: Basophils # (auto) 0 10 ^3/uL (0-0.2); Basophils % (auto) 0.1 % (0.0-2.0); Eosinophils # (auto) 0 10 ^3/uL (0-0.8); Eosinophils % (auto) 0.3 % (0.0-7.0); Hematocrit 40.1 % (36.0-46.0); Lymphocytes # (auto) 0.6 10 ^3/uL (0.4-5.4); Lymphocytes % (auto) 4.3 % (10.0-50.0); Mean Corpuscular Hemoglobin 29.1 pg (28.0-32.0); Mean Corpuscular Hgb Conc. 32.4 g/dL (32.0-36.0); Monocytes # (auto) 1.4 10 ^3/uL (0-1.3); Monocytes % (auto) 10.6 % (0.0-12.0); Neutrophils # (auto) 11.4 10 ^3/uL (1.6-8.6); Neutrophils % (auto) 84.7 % (37.0-80.0); Nucleated Red Blood Cells % 0.4 %; Platelet Count (auto) 142 10^3/uL (140-450); Red Blood Cells 4.46 10^6/uL (4.0-5.20); Red Cell Distribution Width 16.6 % (11.8-14.3); White Blood Cell 13.5 10^3/uL (4.4-10.8)
[2019-11-12 04:36] LABS: Albumin 2.7 g/dL (3.4-5.0); Calcium 7.5 mg/dL (8.5-10.1); Potassium 4.5 mmol/L (3.5-5.1)
[2019-11-12 04:44] LABS: BUN/Creatinine Ratio 18.9; Bilirubin, Total 6.4 mg/dL (0.2-1.0); Total Protein 5.5 g/dL (6.4-8.2)
[2019-11-12] MEDS: FUROSEMIDE 40 MG/4 ML VIAL IV SCH ×2 (05:56→11:15)
[2019-11-12] MEDS: ACCU-CHEK COMFORT CURVE STRIP VI SCH ×4 (06:08→18:00)
[2019-11-12] MEDS ORDERED: FUROSEMIDE 100 MG/10ML VIAL IV ONE (07:00)
[2019-11-12] MEDS: PANTOPRAZOLE 40 MG/10 ML VIAL INJ IV SCH ×2 (09:25→22:00)
[2019-11-12] MEDS: cefTRIAXone 1GM/50ML D5W 50 ML IV SCH (09:25)
[2019-11-12] MEDS: LINEZOLID 600MG/300ML 300 ML IV SCH ×2 (10:19→22:00)
[2019-11-12] MEDS: SODIUM CHLORIDE 0.9% 1,000 ML IV SCH (15:00)
[2019-11-12] MEDS: PROPOFOL 100 ML IV SCH (15:30)
[2019-11-12] MEDS ORDERED: AMIODARONE HCL 200 MG TAB GT ONE (15:45)
--- NOTE | 2019-11-12 15:51 | NUR ---
1300 SEDATION VACATION CARRIED OUT PER MDS ORDERS. SEE ORDERS FOR COMPLETE DETAILS.
--- NOTE | 2019-11-12 16:08 | NUR ---
1600 PATIENT WAS ABLE TO WAKE UP AND BREATH AGAINST THE VENT. PATIENT WAS AGITATED AND SEEM TO BE UNCOMFORTABLE. SO PREVIOUS SEDATION WAS CONTINUED WILL CONTINUE TO MONITOR PATIENTS STATUS.
[2019-11-12] MEDS: fentaNYL Drip 2500mCg/250mlNS 250 ML IV SCH (16:15)
[2019-11-12] MEDS: DOBUTamine HCL 500 MG in D5W 5% 210 ML IV SCH (16:57)
--- NOTE | 2019-11-12 18:25 | NUR ---
Respiratory note: RECEIVED PT ON COREY VENT V22, VENT CONNECTED TO RED OUTLET AND O2 SOURCE ALARMS ARE SET AND AUDIBLE. AMBU BAG AND MASK AT BEDSIDE. BS ARE CLEAR T/O NO SX DONE AT THIS TIME.PTS CURRENT TEMP IS 96.6F. RT NAME AND PAGER ASSIGNMENT WRITTEN ON PTS ROOM BOARD. NO CHANGES MADE WILL CONTINUE TO MONITOR Q2H.
--- NOTE | 2019-11-12 20:07 | NUR ---
Respiratory note: AT BEDSIDE FOR ROUTINE VENT CHECK. SXD VIA ETT FOR MODERATE THICK DARK BLOOD/BROWN CLOTS. CURRENT TEMP READING 96.8F. NO VENT CHANGES MADE WILL CONTINUE TO MONITOR.
[2019-11-12] MEDS: AMIODARONE HCL 200 MG TAB GT SCH (22:00)
--- NOTE | 2019-11-12 22:52 | NUR ---
Respiratory note: AT BEDSIDE FOR ROUTINE VENT CHECK. CURRENT TEMP READING 96.6F. NO VENT CHANGES MADE WILL CONTINUE TO MONITOR.
[2019-11-13] VITALS (102 sets, daily range): BP systolic 98–135; BP diastolic 69–86
--- NOTE | 2019-11-13 00:03 | NUR ---
Respiratory note: AT BEDSIDE FOR ROUTINE VENT CHECK. CURRENT TEMP READING 96.6F. NO VENT CHANGES MADE WILL CONTINUE TO MONITOR.
[2019-11-13] MEDS: MIDAZOLAM DRIP 50 mg/50mL 50 ML IV SCH (01:49)
--- NOTE | 2019-11-13 02:20 | NUR ---
Respiratory note: AT BEDSIDE FOR ROUTINE VENT CHECK. CURRENT TEMP READING 96.6F.SXD VIA ETT FOR LARGE AMOUNT OF THICK BROWN/JOSHI PLUGS, NO VENT CHANGES MADE WILL CONTINUE TO MONITOR.
--- NOTE | 2019-11-13 04:14 | NUR ---
Respiratory note: AT BEDSIDE FOR END OF SHIFT VENT CHECK. CURRENT TEMP READING 96.4F. NO VENT CHANGES MADE WILL HAVE DAY SHIFT CONTINUE POC.
[2019-11-13 04:45] LABS: Potassium 4.4 mmol/L (3.5-5.1)
[2019-11-13 04:54] LABS: Albumin 2.1 g/dL (3.4-5.0); BUN/Creatinine Ratio 19.2; Bilirubin, Total 5.4 mg/dL (0.2-1.0); Calcium 7.1 mg/dL (8.5-10.1); Total Protein 4.7 g/dL (6.4-8.2)
[2019-11-13] MEDS: InsuLIN REG 1unit/0.01ml Soln (100units/ml) SC SCH ×3 (06:00→18:00)
[2019-11-13] MEDS: ACCU-CHEK COMFORT CURVE STRIP VI SCH ×4 (06:00→18:17)
[2019-11-13] MEDS: FUROSEMIDE 40 MG/4 ML VIAL IV SCH ×3 (06:29→22:00)
[2019-11-13] MEDS: PHENYLEPHRINE INJ 40 MG in SODIUM CHL 0.9% 250 ML IV SCH (07:23)
--- NOTE | 2019-11-13 08:00 | NUR ---
Opening Shift Note Assumed care of patient, intubated and sedated. No S/S of distress/SOB or pain. LT nare NGT clamped. See interventions for complete assessment. Bed locked on low position, side rails up x2, bed alarms on at all times, will continue to monitor for changes Q1hr and PRN.
--- NOTE | 2019-11-13 09:05 | NUR ---
Received call from patient's Jaron who's able to provide password. Updated on patient's status and POC, verbalized understanding. All questions and concerns addressed.
[2019-11-13] MEDS: SODIUM CHLORIDE 0.9% 1,000 ML IV SCH ×2 (09:31→11:02)
[2019-11-13] MEDS: cefTRIAXone 1GM/50ML D5W 50 ML IV SCH (09:31)
[2019-11-13] MEDS: LINEZOLID 600MG/300ML 300 ML IV SCH ×2 (09:31→22:00)
[2019-11-13] MEDS: AMIODARONE HCL 200 MG TAB GT SCH ×2 (09:32→22:00)
[2019-11-13] MEDS: ENOXAPARIN SOD 80 MG/0.8ML SYRINGE SC SCH (09:32)
[2019-11-13] MEDS: PANTOPRAZOLE 40 MG/10 ML VIAL INJ IV SCH ×2 (09:32→22:00)
--- NOTE | 2019-11-13 09:40 | NUR ---
Sheryl Pepe LUBRICATOR GRANULATOR at bedside, patient seen and examined. Will carry out new orders.
--- NOTE | 2019-11-13 10:30 | NUR ---
Dr Boyle at bedside, updated on patient's status. Patient seen and examined. Plan to CPAP patient today. Sedation turned off. Will continue to monitor patient.
[2019-11-13] MEDS: NOREPINEPHRINE 8 MG/250ML KIT 250 ML IV SCH (11:02)
[2019-11-13] MEDS: PROPOFOL 100 ML IV SCH (11:02)
--- NOTE | 2019-11-13 12:04 | NUR ---
Nutrition Followup Notes Wt: 84.0 kg Pt intubated and sedated with propofol running at 2.409 ml/hr to provide 64kcal from lipids. Per MD note pt to CPAP today, sedation turned off. Per RN note pt continues to have high residuals and aspirated TF. [employer] needs ABW 65 [id number] kcals (23-25 kcal/kgABW), Est Protein needs: 50-63 gms/day (0.6-0.75g/kg BW 84kg r/t JORGE A per MD note, elevated RFTs). Will continue to monitor and reassess prn. LABS: BUN 76H, Creat 3.96H, Ca 7.1L, Alb 2.1L GI: Pt has no BM, reported per RN doc. BS: 15 mod risk. Refer to wound assessment report for full details. PES: Altered nutrition related lab values r.t current chronic medical condition aeb elev RFT mod hypoalb hypocalcemia, hyperglycemia Impaired swallowing r.t current medical condition aeb pt`s intubated sedated with order of NPO Comments Will continue to monitor NPO status, skin status, pertinent labs and weight trends. Will f/u in 2-3 days. 1) consider EN support with Osmolite @ 40 ml/hr with a goal rate of 55 ml/hr if pt RFTs/JORGE A improves per MD approval if pt fails CPAP. 2) consider MVI/C bid. 3) advance diet as medically feasible. 4) continue current plan of care
--- NOTE | 2019-11-13 13:17 | NUR ---
Dr Delong at bedside, updated on patient's status. Informed or patient's low urine output, 50ml since 0700. Patient seen and examined. Will carry out new orders.
--- NOTE | 2019-11-13 13:20 | NUR ---
Patient opens eye to voice but no sustained eye contact and unable to follow commands. Will continue to monitor.l
[2019-11-13] MEDS: DOBUTamine HCL 500 MG in D5W 5% 210 ML IV SCH (13:22)
--- NOTE | 2019-11-13 13:40 | NUR ---
Patient had moderate amount of dark brown pasty stool, given perineal care. Skin integrity assessed for any changes. Linens partially changed. Patient repositioned for comfort.
--- NOTE | 2019-11-13 13:45 | NUR ---
Wound care Ani CAGLE at bedside to re-evaluate patient.
--- NOTE | 2019-11-13 13:45 | NUR ---
WOUND CARE NOTE: Wound care in to see patient for skin integrity monitoring. Patient continue resting in ICU bed in Rm. 112. Patient is intubated and mechanically ventilated. Patient appears to be in no pain using [place] Faces Pain Scale. her Jaime score is 13. Skin assessment done with the assistance of patient's nurse, GURJIT Arriaga. Patient passed small amount of pasty stool. Avani care given,applied Barrier cream to sacral,buttock. Applied preventative Opti foam sacral dressing to upper sacrum. No wound noted, no pressure injury noted. Patient tolerated well, repositioned for comfort, redistributed pressure points with pillows. GURJIT Winter at bedside. RECOMMENDATION: Continuation of all wound care orders prescribed by MD, continue with skin/wound preventative plan of care, continue monitoring by wound care while intubated and Jaime score is <18.
[2019-11-13] MEDS: DOPamine 1600MCG/ML D5W 250 ML IV SCH (14:32)
[2019-11-13] MEDS: fentaNYL Drip 2500mCg/250mlNS 250 ML IV SCH (15:05)
--- NOTE | 2019-11-13 16:54 | NUR ---
Patient responds and opens eyes to voice but unable to follow commands at this time. Will continue to monitor.
--- NOTE | 2019-11-13 18:00 | NUR ---
Re-started Fentanyl drip at 25mcg/hr.
--- NOTE | 2019-11-13 20:00 | NUR ---
ADMITTED WITH DSYPNEA. DIAGNOSIS: SEPTIC SHOCK, NSTEMI. HYPONATREMIC , LEVEL 126. DR HAMLIN IS SEEING THE PATIENT FOR JORGE A. CREAT : 3.96 BUN 76. FULL CODE. TARYN CALLED FOR UPDATES. NEURO: MOVES HEAD, DOES NOT OPEN EYES OR FOLLOW COMMANDS. CV: NSR WITHOUT ECTOPY SYSTOLIC BP STABLE. DOBUTAMINE DRIP FOR RENAL PERFUSION AT 5 MCG/KG/MIN. RECTAL TEMP PROBE IS READING LOW. ORAL TEMPS BEING DONE. ADDED 2 WARM BLANKETS FOR A TEMP OF97.2. GI: LEFT NARE NGT RECONNECTED TO [facility] FULL STRENGTH AT 30CC/HR. PLAN FOR CPAP TRIAL AGAIN TOMORROW. RESP: ORALLY INTUBATED. ETT TO VENTILATOR. NOTHING SUCTIONED FROM THE ETT OR ORALLY. ORAL CAVITY IS DRY. ORAL CARE DONE. POSITIONED TO LEFT SIDE.. COLON IN PLACE DRAINING CLEAR YELLOW LIQUID TO DOWN DRAIN BAG. LOW URINE OUTPUT. NO SKIN ISSUES. HEELS OFF BED. SCDS ON. ALL PULSES PALPABLE. PALE. ABDOMEN SOFT. SOCIAL SERVICE CONSULT IN FOR INSURANCE CHECK. IV: RIJ TLC AND A 22G LAC PERIPHERAL LINE. MAIN IV GOING THROUGH THE 22G. DR AQUINO SPOKE TO THE FAMILY TODAY OF POSSIBLE DIALYSIS.
--- NOTE | 2019-11-13 22:00 | NUR ---
REPOSITIONED TO BACK. ORAL CARE DONE. NOTHING SUCTIONED FROM THE ETT. NSR 84, NO ECTOPY. SBP 127
[2019-11-14] VITALS (96 sets, daily range): BP systolic 117–148; BP diastolic 72–93
--- NOTE | 2019-11-14 | NUR ---
POOR RESPONSE TO LASIX . 30 CC IN URINE METER FOR 2 HOURS. NSR WITHOUT ECTOPY. RUST SECRETIONS SUCTIONED FROM THE ETT. ORAL CARE DONE. REPOSITIONED TO RIGHT SIDE. GENERALIZED EDEMA PERSISTS. ALL PULSES PALPABLE. TEMP COMING UP WITH JUST BLANKETS.
[2019-11-14] MEDS: PHENYLEPHRINE INJ 40 MG in SODIUM CHL 0.9% 250 ML IV SCH ×2 (00:03→16:18)
[2019-11-14] MEDS: ACCU-CHEK COMFORT CURVE STRIP VI SCH ×4 (00:17→17:50)
--- NOTE | 2019-11-14 04:00 | NUR ---
CHG BATH. INCONTINENT OF RUNNY BROWN LIQUID STOOL.
[2019-11-14] MEDS: MIDAZOLAM DRIP 50 mg/50mL 50 ML IV SCH (04:12)
[2019-11-14 04:40] LABS: Basophils # (auto) 0.1 10 ^3/uL (0-0.2); Basophils % (auto) 1.3 % (0.0-2.0); Eosinophils # (auto) 0 10 ^3/uL (0-0.8); Eosinophils % (auto) 0.3 % (0.0-7.0); Hematocrit 36.1 % (36.0-46.0); Lymphocytes # (auto) 0.7 10 ^3/uL (0.4-5.4); Lymphocytes % (auto) 7.3 % (10.0-50.0); Mean Corpuscular Hemoglobin 29.4 pg (28.0-32.0); Mean Corpuscular Hgb Conc. 33.2 g/dL (32.0-36.0); Mean Corpuscular Volume 88.6 fL (80.0-100.0); Monocytes # (auto) 0.3 10 ^3/uL (0-1.3); Monocytes % (auto) 2.6 % (0.0-12.0); Neutrophils # (auto) 8.7 10 ^3/uL (1.6-8.6); Neutrophils % (auto) 88.5 % (37.0-80.0); Nucleated Red Blood Cells % 0.1 %; Platelet Count (auto) 119 10^3/uL (140-450); Red Blood Cells 4.08 10^6/uL (4.0-5.20); Red Cell Distribution Width 16.4 % (11.8-14.3); White Blood Cell 9.9 10^3/uL (4.4-10.8)
[2019-11-14 05:01] LABS: Albumin 2.2 g/dL (3.4-5.0); Calcium 7.7 mg/dL (8.5-10.1)
[2019-11-14 05:04] LABS: BUN/Creatinine Ratio 17.7; Total Protein 5.5 g/dL (6.4-8.2)
[2019-11-14] MEDS: SODIUM CHLORIDE 0.9% 1,000 ML IV SCH ×2 (05:20→09:14)
[2019-11-14] MEDS: InsuLIN REG 1unit/0.01ml Soln (100units/ml) SC SCH ×4 (06:00→17:49)
--- NOTE | 2019-11-14 06:00 | NUR ---
VSS. COUGHED OUT JOSHI SECRETIONS ORALLY. RUST SUCTIONED FROM THE ETT. LOW URINE OUTPUT. COLOR OF URINE IS A LIGHT YELLOW.
[2019-11-14] MEDS: DOPamine 1600MCG/ML D5W 250 ML IV SCH ×2 (07:10→23:48)
--- NOTE | 2019-11-14 08:00 | NUR ---
Opening Shift Note Assumed care of patient, intubated and sedated. No S/S of distress/SOB or pain. LT nare NGT clamped for possible CPAP today. See interventions for complete assessment. Bed locked on low position, side rails up x2, bed alarms on at all times, will continue to monitor for changes Q1hr and PRN.
--- NOTE | 2019-11-14 08:15 | NUR ---
Spoke to Dr Boyle over the phone, updated on patient's status. Plan to CPAP patient today. Turned off sedation. Will continue to monitor.
[2019-11-14] MEDS: DOBUTamine HCL 500 MG in D5W 5% 210 ML IV SCH (08:43)
[2019-11-14] MEDS: cefTRIAXone 1GM/50ML D5W 50 ML IV SCH ×2 (08:43→09:55)
--- NOTE | 2019-11-14 09:08 | NUR ---
Received call from patient's Jaron who's able to provide password. Updated on patient's status and POC, verbalized understanding. All questions and concerns addressed.
[2019-11-14] MEDS: FUROSEMIDE 40 MG/4 ML VIAL IV SCH ×2 (09:55→22:00)
[2019-11-14] MEDS: LINEZOLID 600MG/300ML 300 ML IV SCH (09:55)
[2019-11-14] MEDS: PANTOPRAZOLE 40 MG/10 ML VIAL INJ IV SCH ×2 (09:56→22:00)
[2019-11-14] MEDS: AMIODARONE HCL 200 MG TAB GT SCH ×2 (09:56→22:00)
[2019-11-14] MEDS: ENOXAPARIN SOD 80 MG/0.8ML SYRINGE SC SCH (10:00)
[2019-11-14 10:52] LABS: INR 1.28 (0.9-1.15); Partial Thromboplastin Time 37.9 sec (23.64-32.05)
--- NOTE | 2019-11-14 11:00 | NUR ---
Dr Boyle at bedside, updated on patient's status. Patient seen and examined. Plan to CPAP cancelled due to patient's WOB. Lovenox held for possible HD access placement, awaiting for Dr Delong to see patient.
[2019-11-14] MEDS: NOREPINEPHRINE 8 MG/250ML KIT 250 ML IV SCH (11:26)
[2019-11-14] MEDS: PROPOFOL 100 ML IV SCH (11:26)
--- NOTE | 2019-11-14 11:45 | NUR ---
Dr Lynn at bedside, patient seen and examined. Will carry out new orders.
--- NOTE | 2019-11-14 11:59 | NUR ---
re-assessment Per consult , insurance. Patient has no insurance. Patient has been evaluated by Danny Fu from [facility]. Patient is over income. Patients makes [phone] per month. Patient is a true self pay. Addendum: 11/14/19 at 1202 by Carla Dunham Amended: Links added.
[2019-11-14] MEDS: DOXYCYCLINE 100MG/250ML 250 ML IV SCH ×2 (13:00→23:45)
[2019-11-14] MEDS ORDERED: HEPARIN 1,000 UNITS/ml 1ML VIAL IV ONE (14:00)
[2019-11-14] MEDS ORDERED: HEPARIN SODIUM (PORCINE) 5000 UNITS/ML 1ML VIAL ONE (14:34)
--- NOTE | 2019-11-14 14:45 | NUR ---
HD cath placed by Dr Salmon at bedside, patient tolerated procedure well. Xray done post procedure. Catheter ready to use per MD. Dialysis nurse informed.
[2019-11-14] MEDS ORDERED: HEPARIN SODIUM (PORCINE) 5000 UNITS/ML 1ML VIAL IV ONE (15:00)
--- NOTE | 2019-11-14 15:00 | NUR ---
Paged Dr Delong and called back, informed HD catheter already in place, verbalized understanding and stated he will put orders in.
[2019-11-14] MEDS: fentaNYL Drip 2500mCg/250mlNS 250 ML IV SCH ×2 (15:09→23:00)
--- NOTE | 2019-11-14 15:40 | NUR ---
Received call form [facility] regarding HD cath placement per chest xray. Dr Salmon is on a procedure, awaiting call back.
--- NOTE | 2019-11-14 16:30 | NUR ---
Spoke to Dr Lowe over the phone, informed of xray report regarding HD catheter, verbalized understanding, will come check catheter.
--- NOTE | 2019-11-14 17:00 | NUR ---
Re-insertion of HD catheter done by Dr Salmon at bedside, patient tolerated well. Awaiting xray.
[2019-11-14] MEDS ORDERED: ALBUMIN 25% 100 ML IV PRN (17:30)
--- NOTE | 2019-11-14 18:46 | NUR ---
Spoke to Peter LOZOYA over the phone, informed regarding recommendation to advance ET tube per chest xray.
[2019-11-14] MEDS ORDERED: DOBUTamine 1000MCG/ML 250 ML IV ONE (19:29)
--- NOTE | 2019-11-14 20:00 | NUR ---
ADMITTED WITH DSYPNEA. DIAGNOSIS: SEPTIC SHOCK, NSTEMI. HYPONATREMIC , LEVEL 126. DR HAMLIN IS SEEING THE PATIENT FOR JORGE A. CREAT : 4.63 BUN 82. FULL CODE. TARYN CALLED FOR UPDATES. NEURO: MOVES HEAD, DOES NOT OPEN EYES OR FOLLOW COMMANDS. CV: NSR WITHOUT ECTOPY SYSTOLIC BP STABLE. DOBUTAMINE DRIP FOR RENAL PERFUSION AT 5 MCG/KG/MIN. ORAL TEMPS BEING DONE. GI: LEFT NARE NGT RECONNECTED TO [facility] FULL STRENGTH AT 30CC/HR. PLAN FOR CPAP TRIAL AGAIN TOMORROW. RESP: ORALLY INTUBATED. ETT TO VENTILATOR. NOTHING SUCTIONED FROM THE ETT OR ORALLY. ORAL CAVITY IS DRY. ORAL CARE DONE. POSITIONED TO RIGHT SIDE.. COLON IN PLACE DRAINING CLEAR YELLOW LIQUID TO DOWN DRAIN BAG. LOW URINE OUTPUT. NO SKIN ISSUES. HEELS OFF BED. SCDS ON. ALL PULSES PALPABLE. PALE. ABDOMEN SOFT. SOCIAL SERVICE CONSULT IN FOR INSURANCE CHECK. IV: RIJ TLC. PERIPHERAL IV DCD. MAIN IV PUT IN CENTRAL LINE. LINDA PALMA. PLAN IS FOR DIALYSIS TONIGHT OR IN AM ACCORDING TO THE [facility]HR STRIPPER . [facility] LEVEL HIGH. GWEN AREA CLEAN.
--- NOTE | 2019-11-14 22:00 | NUR ---
REPOSITIONED TO BACK . ORAL CARE. SUCTIONED ETT FOR RUST SECRETIONS. ABDOMEN SOFT. NGT RESIDUAL 5 CC. GWEN AREA CLEAN. OPENS EYES, COUGHS. SARAH. NSR WITHOUT ECTOPY.
[2019-11-15] VITALS (104 sets, daily range): BP systolic 103–148; BP diastolic 62–92
--- NOTE | 2019-11-15 01:03 | NUR ---
chg bath and complete linen change
--- NOTE | 2019-11-15 01:52 | NUR ---
ATRIAL FIB RATE 107-140. CALL IN TO HOSPITALIST.
--- NOTE | 2019-11-15 02:16 | NUR ---
CONVERTED OUT OF ATRIAL FIB. LASTED FOR 12 MINUTES.
--- NOTE | 2019-11-15 03:00 | NUR ---
AM LABS DRAWN
[2019-11-15 03:57] LABS: Albumin 2.3 g/dL (3.4-5.0)
--- NOTE | 2019-11-15 04:00 | NUR ---
BLUE PORT PARTIALLY CLOTTED OFF ON CENTRAL LINE. FENTANYL DID NOT GO IN BRIEFLY. PATIENT WOKE UP. SWITCHED THE FENTANYL TO GO WITH THE DOBUTAMINE. YOU CAN FLUSH THE BLUE LINE, IT'S JUST HARD. REPOSITIONED TO BACK. HOB ELEVATED. ORAL CARE DONE. SUCTIONED BLOOD TINGED SECRETIONS FROM THE ETT. NO BM YET TONIGHT. NO FEVER.
[2019-11-15 04:01] LABS: BUN/Creatinine Ratio 18.1; Total Protein 5.7 g/dL (6.4-8.2)
[2019-11-15] MEDS: MIDAZOLAM DRIP 50 mg/50mL 50 ML IV SCH ×4 (04:12→23:00)
[2019-11-15] MEDS: SODIUM CHLORIDE 0.9% 1,000 ML IV SCH (05:00)
[2019-11-15] MEDS: DOBUTamine HCL 500 MG in D5W 5% 210 ML IV SCH ×2 (05:39→10:18)
[2019-11-15] MEDS: ACCU-CHEK COMFORT CURVE STRIP VI SCH ×4 (06:00→17:14)
[2019-11-15] MEDS: InsuLIN REG 1unit/0.01ml Soln (100units/ml) SC SCH ×4 (06:00→17:14)
--- NOTE | 2019-11-15 06:41 | NUR ---
REPOSITIONED TO RIGHT. NSR WITHOUT ECTOPY.LOW URINE OUTPUT.
[2019-11-15] MEDS ORDERED: SODIUM CHL 0.9% 1000 ML BAG XX ONE (07:00)
--- NOTE | 2019-11-15 07:08 | NUR ---
VICE PRESIDENT FIXED INCOME HERE SETTING UP FOR FIRST TREATMENT
--- NOTE | 2019-11-15 08:00 | NUR ---
Opening Shift Note Assumed care of patient, intubated and sedated. No S/S of distress/SOB or pain. Unable to turn and assess patient's back at this time, HD at bedside started @ 0730. See interventions for complete assessment. Bed locked on low position, side rails up x2, bed alarms on at all times, will continue to monitor for changes Q1hr and PRN.
--- NOTE | 2019-11-15 09:14 | NUR ---
Received call from patient's Jaron who's able to provide password. Updated on patient's status and POC, verbalized understanding. All questions and concerns addressed.
[2019-11-15] MEDS: PHENYLEPHRINE INJ 40 MG in SODIUM CHL 0.9% 250 ML IV SCH (09:23)
--- NOTE | 2019-11-15 10:07 | NUR ---
Dr Boyle at bedside, updated on patient's status. patient seen and examined. Received order to re-start Versed drip. Orders read back and verified. Will carry out.
--- NOTE | 2019-11-15 10:30 | NUR ---
HD at bedside completed, 3L pulled out. Patient tolerated procedure. Will continue to monitor.
[2019-11-15] MEDS: PANTOPRAZOLE 40 MG/10 ML VIAL INJ IV SCH ×2 (10:36→22:00)
[2019-11-15] MEDS: ENOXAPARIN SOD 80 MG/0.8ML SYRINGE SC SCH (10:37)
[2019-11-15] MEDS: AMIODARONE HCL 200 MG TAB GT SCH ×2 (10:37→22:00)
[2019-11-15] MEDS: FUROSEMIDE 40 MG/4 ML VIAL IV SCH ×2 (10:37→22:00)
[2019-11-15] MEDS: cefTRIAXone 1GM/50ML D5W 50 ML IV SCH (10:38)
[2019-11-15] MEDS: PROPOFOL 100 ML IV SCH (11:17)
[2019-11-15] MEDS: NOREPINEPHRINE 8 MG/250ML KIT 250 ML IV SCH (11:18)
[2019-11-15] MEDS: DOXYCYCLINE 100MG/250ML 250 ML IV SCH ×2 (11:33→23:45)
--- NOTE | 2019-11-15 12:10 | NUR ---
Nutrition Followup Notes Wt: 93.3 kg Pt intubated and sedated. Pt received HD 11/14 per RN note. Pt with 3L of fluid removed. Pt received 240 ml/hr of TF 11/14 so far per RN note. Consider changing TF to Nepro CS at 40 ml/hr and 1 pkt prostat BID d/t pt starting HD. Est Energy needs ABW 65 [id number] kcals (23-25 kcal/kgABW), Est Protein needs: 84-101 gms/day (1-1.2g/kg BW 84kg r/t pt started HD). Will continue to monitor and reassess prn. LABS: BUN 93H, Creat 5.15H, Alb 2.3L, GLUC 122H, Ca 8.0L GI: Pt with 3 BMs 11/13 reported per RN doc. BS: 13 mod risk. Refer to wound assessment report for full details. PES: Altered nutrition related lab values r.t current chronic medical condition aeb elev RFT mod hypoalb hypocalcemia, hyperglycemia Impaired swallowing r.t current medical condition aeb pt`s intubated sedated with order of NPO Comments Will continue to monitor NPO status, skin status, pertinent labs and weight trends. Will f/u in 2-3 days. 1) Consider changing TF to Nepro CS at 40 ml/hr and 1 pkt prostat BID d/t pt starting HD 2) consider MVI/C bid. 3) advance diet as medically feasible. 4) continue current plan of care
--- NOTE | 2019-11-15 14:00 | NUR ---
Osmolyte held, 50ml residuals noted.
--- NOTE | 2019-11-15 16:13 | NUR ---
Dr Delong at bedside, updated on patient's status. Patient seen and examined. Will carry out new orders.
[2019-11-15] MEDS: DOPamine 1600MCG/ML D5W 250 ML IV SCH (16:26)
--- NOTE | 2019-11-15 17:00 | NUR ---
20ml residual feeding noted. Re-started Osmolyte at 20ml/hr via LT nare NGT.
[2019-11-15] MEDS: Osmolite 1.2 Cal One Liter GT SCH (19:00)
--- NOTE | 2019-11-15 20:00 | NUR ---
ADMITTED WITH DSYPNEA. DIAGNOSIS: SEPTIC SHOCK, NSTEMI. HYPONATREMIC , LEVEL 126. DR HAMLIN IS SEEING THE PATIENT FOR JORGE A. CREAT : 5.15 BUN 93. FULL CODE. TARYN CALLED FOR UPDATES. NEURO: MOVES HEAD, DOES NOT OPEN EYES OR FOLLOW COMMANDS. CV: NSR WITHOUT ECTOPY SYSTOLIC BP STABLE. DOBUTAMINE DRIP FOR RENAL PERFUSION AT 5 MCG/KG/MIN. ORAL TEMPS BEING DONE. GI: LEFT NARE NGT RECONNECTED TO [facility] FULL STRENGTH AT 20CC/HR. NO PLAN FOR CPAP TRIAL . RESP: ORALLY INTUBATED. ETT TO VENTILATOR. NOTHING SUCTIONED FROM THE ETT OR ORALLY. ORAL CAVITY IS DRY. ORAL CARE DONE. POSITIONED TO RIGHT SIDE.. COLON IN PLACE DRAINING CLEAR YELLOW LIQUID TO DOWN DRAIN BAG. LOW URINE OUTPUT. NO SKIN ISSUES. HEELS OFF BED. SCDS ON. ALL PULSES PALPABLE. PALE. ABDOMEN SOFT. SOCIAL SERVICE CONSULT IN FOR INSURANCE CHECK. IV: RIJ TLC. MAIN IV PUT IN CENTRAL LINE. LINDA PALMA. DIALYSIS EARLY TODAY . [facility] LEVEL HIGH. GWEN AREA CLEAN. NEW TODAY: NO MAINTENANCE FLUID. VERSED ADDED FOR RESPIRATORY ANXIETY. TUBE FEEDING CHANGED FROM JEVITY TO OSMOLITE. FENTANYL INCREASED.
--- NOTE | 2019-11-15 22:00 | NUR ---
NSR WITHOUT ECTOPY. ORAL CARE. SUCTIONED ETT , NO SECRETIONS. ABDOMEN SOFT. NOT TOLERATING TUBE FEEDING WELL. KEEP TRYING. IV SHOWS NO REDNESS OR SWELLING.
[2019-11-15] MEDS: fentaNYL Drip 2500mCg/250mlNS 250 ML IV SCH (23:00)
[2019-11-16] VITALS (106 sets, daily range): BP systolic 94–134; BP diastolic 51–82
--- NOTE | 2019-11-16 | NUR ---
NO NEW FINDINGS. NOT TOLERATING TUBE FEEDING. INTAKE AND RESIDUAL ARE EQUAL. SBP STABLE . NSR WITHOUT ECTOPY.
--- NOTE | 2019-11-16 02:00 | NUR ---
CHG BATH. CENTRAL LINE DRESSING CHANGE. LABS DONE.
[2019-11-16] MEDS: PHENYLEPHRINE INJ 40 MG in SODIUM CHL 0.9% 250 ML IV SCH ×2 (02:03→18:43)
--- NOTE | 2019-11-16 02:30 | NUR ---
TUBE FEEDING OFF. INTAKE 60CC, RESIDUAL 60CC.
--- NOTE | 2019-11-16 02:52 | NUR ---
AM LABS DONE
--- NOTE | 2019-11-16 04:00 | NUR ---
GWEN AREA REDNESS. Z GUARD APPLIED
[2019-11-16 04:06] LABS: Hematocrit 34.4 % (36.0-46.0); Hemoglobin 11.1 g/dL (12.2-16.2); Mean Corpuscular Hemoglobin 29.2 pg (28.0-32.0); Mean Corpuscular Hgb Conc. 32.4 g/dL (32.0-36.0); Mean Corpuscular Volume 90.4 fL (80.0-100.0); Platelet Count (auto) 78 10^3/uL (140-450); Red Cell Distribution Width 16.8 % (11.8-14.3)
[2019-11-16 04:13] LABS: Basophils % (manual) 0 (0.0-2.0); Blast Cells 0; Metamyelocytes % 0; Myelocytes % 0; Promyelocytes % 0; Reactive Lymphocytes 0
[2019-11-16 04:24] LABS: Albumin 2.2 g/dL (3.4-5.0); Calcium 7.8 mg/dL (8.5-10.1); Potassium 4.6 mmol/L (3.5-5.1)
[2019-11-16 04:29] LABS: BUN/Creatinine Ratio 16.3; Bilirubin, Total 6.1 mg/dL (0.2-1.0); Total Protein 5.5 g/dL (6.4-8.2)
[2019-11-16 05:20] LABS: Band Neutrophils % (manual) 3; Eosinophils % (manual) 1 (0-7); Lymphocytes % (manual) 4 (10.0-50.0); Monocytes % (manual) 1 (0-12)
[2019-11-16] MEDS ORDERED: DOBUTamine 1000MCG/ML 250 ML IV ONE (05:26)
[2019-11-16] MEDS: DOBUTamine HCL 500 MG in D5W 5% 210 ML IV SCH ×2 (06:00→17:09)
[2019-11-16] MEDS: ACCU-CHEK COMFORT CURVE STRIP VI SCH ×4 (06:00→17:23)
[2019-11-16] MEDS: InsuLIN REG 1unit/0.01ml Soln (100units/ml) SC SCH ×4 (06:00→17:23)
--- NOTE | 2019-11-16 06:08 | NUR ---
Respiratory note: RECEIVED PATIENT ON V22 [place] VENT ORALLY INTUBATED WITH AN 8.0 ETT SECURED VIA KARIN AT THE 21CM MARKING AT THE LIP, AND MECHANICALLY VENTILATED WITH THE CHARTED SETTINGS. SPO2 99%, LUNG SOUNDS CLEAR/DIM T/O. SCANT AMOUNT OF THIN CLEAR SECRETIONS WHEN SUCTIONED. SKIN IS WARM/DRY TO THE TOUCH AND IS INTACT NEAR KARIN SITE. THERE IS A NGT IN THE LEFT NARE AND IT IS SECURED TO THE NOSE, A TRIPLE LUMEN CENTRAL LINE IS PLACED IN THE RIGHT IJ, AND A MINERVA CATH IS PLACED IN THE LEFT SIDE NECK. PITTING EDEMA NOTED IN BILATERAL UPPER EXTREMITIES, WELL LOWER EXTREMITIES. LEG SEQUENTIALS ARE ON AND OPERATIONAL. NO NEW AM CXR TO REPORT. PATIENT IS UNRESPONSIVE TO BOTH VERBAL/TACTILE STIMULI AND IS SEDATED ON VERSED AND FENTANYL DRIPS. SHE IS RESTING COMFORTABLY AND TOLERATING VENT WELL, NO CHANGES MADE. VENT PLUGGED INTO RED OUTLET AND ALL ALARMS ARE SET AND AUDIBLE. WILL CONTINUE TO ASSESS PATIENT WELL VENTILATOR FUNCTION.
[2019-11-16] MEDS: MIDAZOLAM DRIP 50 mg/50mL 50 ML IV SCH ×2 (07:01→18:13)
--- NOTE | 2019-11-16 07:30 | NUR ---
INITIAL ASSESSMENT COMPLETED .
[2019-11-16] MEDS: cefTRIAXone 1GM/50ML D5W 50 ML IV SCH (08:32)
--- NOTE | 2019-11-16 09:00 | NUR ---
Family updated on pt status Family of AKHILCRIS updated on patient's status and condition. All questions and concerns addressed. verbalized understanding.
[2019-11-16] MEDS: DOPamine 1600MCG/ML D5W 250 ML IV SCH (09:04)
[2019-11-16] MEDS: PANTOPRAZOLE 40 MG/10 ML VIAL INJ IV SCH (09:49)
[2019-11-16] MEDS: ENOXAPARIN SOD 80 MG/0.8ML SYRINGE SC SCH (09:50)
[2019-11-16] MEDS: AMIODARONE HCL 200 MG TAB GT SCH ×2 (09:50→22:48)
[2019-11-16] MEDS: FUROSEMIDE 40 MG/4 ML VIAL IV SCH ×2 (09:50→22:48)
[2019-11-16] MEDS: SACUBITRIL-VALSARTAN 24mg/26mg TAB PO SCH ×2 (10:00→22:00)
[2019-11-16] MEDS: CARVEDILOL 3.125 MG TAB PO SCH ×2 (10:00→22:48)
[2019-11-16] MEDS: NOREPINEPHRINE 8 MG/250ML KIT 250 ML IV SCH (11:26)
[2019-11-16] MEDS: PROPOFOL 100 ML IV SCH (11:26)
[2019-11-16] MEDS: DOXYCYCLINE 100MG/250ML 250 ML IV SCH ×2 (12:00→23:57)
--- NOTE | 2019-11-16 12:10 | NUR ---
MD at bedside. MD at bedside for evaluation and treatment for acute episode. Further orders received and carried out.
--- NOTE | 2019-11-16 16:00 | NUR ---
Patient bathe/linen change Patient given partial bath. Skin integrity assessed for any changes. Linens changed. Patient repositioned for comfort.
--- NOTE | 2019-11-16 17:25 | NUR ---
accu check- 72, insulin held.
--- NOTE | 2019-11-16 20:00 | NUR ---
CHANGED CHUX PAD UNDER PATIENT - SATURATED WITH URINE
--- NOTE | 2019-11-16 20:00 | NUR ---
SMALL PASTY BM X1
[2019-11-16] MEDS: Osmolite 1.2 Cal One Liter GT SCH (20:15)
--- NOTE | 2019-11-16 20:15 | NUR ---
GASTRIC RESIDUAL < 0 ML - TF STARTED AT 20 ML/HR
--- NOTE | 2019-11-16 21:00 | NUR ---
SEDATION VACATION: PATIENT WITH KNOWN ANXIETY HISTORY. WILL WEAN SEDATION SLOWLY AND TOLERATED Addendum: 11/17/19 at 0125 by Cindy Lovett RN RN Amended: Links added.
[2019-11-16] MEDS ORDERED: DOCUSATE ORAL LIQUID 100 MG/10 ML UD GT SCH (22:00)
--- NOTE | 2019-11-16 22:51 | NUR ---
SCHEDULED ENTRESTO NOT GIVEN SCHEDULED D/T LOW BLOOD PRESSURE AND MULTIPLE MEDICATIONS THAT COULD POSSIBLY LOWER BLOOD PRESSURE AT THE SAME TIME - WILL REASSESS IN 1 HOUR
[2019-11-17] VITALS (89 sets, daily range): BP systolic 75–127; BP diastolic 46–81
[2019-11-17] MEDS: ACCU-CHEK COMFORT CURVE STRIP VI SCH ×5 (00:08→23:34)
--- NOTE | 2019-11-17 00:30 | NUR ---
NO GASTRIC RESIDUAL - KEEP TF AT CURRENT RATE
--- NOTE | 2019-11-17 00:38 | NUR ---
BLOOD PRESSURE IN THE 90s -ENTRESTO HELD - DECREASING SEDATION GTTs
[2019-11-17] MEDS: DOPamine 1600MCG/ML D5W 250 ML IV SCH ×2 (01:42→09:23)
[2019-11-17] MEDS: NOREPINEPHRINE 8 MG/250ML KIT 250 ML IV SCH (02:40)
--- NOTE | 2019-11-17 02:40 | NUR ---
LEVOPHED GTT STARTED - BLOOD PRESSURE REMAINS IN THE HIGH 80s TO LOW 90s, EVEN AFTER TITRATING SEDATION
[2019-11-17] MEDS: MIDAZOLAM DRIP 50 mg/50mL 50 ML IV SCH (04:13)
[2019-11-17 04:44] LABS: Basophils # (auto) 0 10 ^3/uL (0-0.2); Basophils % (auto) 0.2 % (0.0-2.0); Eosinophils # (auto) 0.2 10 ^3/uL (0-0.8); Eosinophils % (auto) 1.6 % (0.0-7.0); Hematocrit 34.1 % (36.0-46.0); Hemoglobin 11.2 g/dL (12.2-16.2); Lymphocytes # (auto) 0.3 10 ^3/uL (0.4-5.4); Lymphocytes % (auto) 2.5 % (10.0-50.0); Mean Corpuscular Hemoglobin 29.1 pg (28.0-32.0); Mean Corpuscular Hgb Conc. 32.8 g/dL (32.0-36.0); Mean Corpuscular Volume 88.6 fL (80.0-100.0); Monocytes # (auto) 0.5 10 ^3/uL (0-1.3); Monocytes % (auto) 4.4 % (0.0-12.0); Neutrophils % (auto) 91.3 % (37.0-80.0); Nucleated Red Blood Cells % 0.2 %; Platelet Count (auto) 78 10^3/uL (140-450); Red Blood Cells 3.85 10^6/uL (4.0-5.20); Red Cell Distribution Width 16.5 % (11.8-14.3); White Blood Cell 12.1 10^3/uL (4.4-10.8)
[2019-11-17 04:54] LABS: Potassium 4.7 mmol/L (3.5-5.1)
[2019-11-17 05:03] LABS: BUN/Creatinine Ratio 15.8; Bilirubin, Total 5.3 mg/dL (0.2-1.0); Calcium 8.2 mg/dL (8.5-10.1)
[2019-11-17] MEDS: InsuLIN REG 1unit/0.01ml Soln (100units/ml) SC SCH ×5 (06:00→23:34)
--- NOTE | 2019-11-17 06:12 | NUR ---
PARTIAL BED BATH, GWEN CARE, COLON CARE, ORAL CARE, AND PARTIAL LINEN CHANGE COMPLETED
--- NOTE | 2019-11-17 06:12 | NUR ---
NOTED WITH EXTREME MACERATION BETWEEN THIGHS, SKIN SLOUGHING, PLACED TOWEL BETWEEN LEGS - WILL ENDORSE TO DAY SHIFT
--- NOTE | 2019-11-17 07:16 | NUR ---
REPORT AND CARE ENDORSED TO GURJIT LOJA
[2019-11-17] MEDS ORDERED: DOCUSATE ORAL LIQUID 100 MG/10 ML UD GT PRN (07:30)
[2019-11-17] MEDS: FUROSEMIDE 40 MG/4 ML VIAL IV SCH ×2 (09:22→22:25)
[2019-11-17] MEDS: PANTOPRAZOLE 40 MG/10 ML VIAL INJ IV SCH (09:22)
[2019-11-17] MEDS: AMIODARONE HCL 200 MG TAB GT SCH ×2 (09:22→19:59)
[2019-11-17] MEDS: CARVEDILOL 3.125 MG TAB PO SCH ×2 (09:22→20:07)
[2019-11-17] MEDS: cefTRIAXone 1GM/50ML D5W 50 ML IV SCH (09:22)
[2019-11-17] MEDS: SACUBITRIL-VALSARTAN 24mg/26mg TAB PO SCH (09:23)
[2019-11-17] MEDS: ENOXAPARIN SOD 80 MG/0.8ML SYRINGE SC SCH (09:23)
[2019-11-17] MEDS: PHENYLEPHRINE INJ 40 MG in SODIUM CHL 0.9% 250 ML IV SCH ×2 (11:23→20:52)
[2019-11-17] MEDS: DOXYCYCLINE 100MG/250ML 250 ML IV SCH ×2 (12:18→23:35)
--- NOTE | 2019-11-17 12:54 | NUR ---
Patient updated via telephone. All questions and concerns addressed. Safety maintained, will continue to monitor.
--- NOTE | 2019-11-17 13:25 | NUR ---
Patient incontinent of liquid brown stool. Complete bath given. Linen and gown changed.
--- NOTE | 2019-11-17 14:00 | NUR ---
Nutrition Followup Notes Wt: 93.4 kg Pt intubated and sedated. Pt with EN nutrition support Osmolite 1.2 @ 40ml/hr per MD order. Pt NG tube temporarily clamped today d/t pt not tolerating feedings per RN doc. Refer to recommendations noted below under Comments. Will continue to monitor PO status, skin status, pertinent labs and weight trends. Will f/u in 2-3 days. Est Energy needs ABW 65 [id number] kcals (23-25 kcal/kgABW), Est Protein needs: 84-101 gms/day (1-1.2g/kg BW 84kg r/t pt started HD). Will continue to monitor and reassess prn. LABS: BUN 76H, Creat 4.82H, Alb 2.0L, GLUC 115H, Ca 8.2L GI: Pt with incontinence per RN doc. BS: 14 mod risk. Refer to wound assessment report for full details. PES: 1) Altered nutrition related lab values r.t current chronic medical condition aeb elev RFT mod hypoalb hypocalcemia, hyperglycemia 2) Impaired swallowing r.t current medical condition aeb pt`s intubated sedated with order of NPO Comments Will continue to monitor NPO status, skin status, pertinent labs and weight trends. Will f/u in 2-3 days. 1) Consider changing TF to Nepro CS at 40 ml/hr goal rate as tolerated and per MD approval, and 1 pkt prostat BID d/t pt starting HD 2) consider MVI/C bid. 3) advance diet as medically feasible. 4) continue current plan of care
--- NOTE | 2019-11-17 14:44 | NUR ---
Dr. Boyle at bedside.
[2019-11-17] MEDS: fentaNYL Drip 2500mCg/250mlNS 250 ML IV SCH (15:09)
--- NOTE | 2019-11-17 15:30 | NUR ---
ASSUMED CARE. PT STILL ON A VENT AND SEDATED. WILL CONT TO MONITOR.
--- NOTE | 2019-11-17 16:00 | NUR ---
DIALYSIS STARTED. WILL CONT TO MONITOR.
[2019-11-17] MEDS ORDERED: SODIUM CHL 0.9% 1000 ML BAG XX ONE (16:15)
--- NOTE | 2019-11-17 17:54 | NUR ---
DIALYSIS IN PROGRESS- HR - ST 120'S- 140'S . SBP- LOW 90'S - INCREASED LEVOPHED TO KEEP SBP GREATER THAN 90. I WILL CONT TO MONITOR.
--- NOTE | 2019-11-17 18:15 | NUR ---
DR LOUANN CHI RE:HR 140'S.
[2019-11-17] MEDS: DOBUTamine HCL 500 MG in D5W 5% 210 ML IV SCH (18:21)
--- NOTE | 2019-11-17 18:49 | NUR ---
HOSPITALIST PAGED RE: HR 140'S DURING DIALYSIS.
--- NOTE | 2019-11-17 19:00 | NUR ---
PT HAD ANOTHER BM., WATERY AND BROWN IN COLOR. CLEANED AND REPOSITIONED FOR COMFORT.
--- NOTE | 2019-11-17 19:00 | NUR ---
DIALYSIS COMPLETED. PULLED 1.4L FLUIDS.
--- NOTE | 2019-11-17 19:11 | NUR ---
returned call Dr. ELAM returned call, updated on patient status and reason for call, NO orders received. Continue care.
--- NOTE | 2019-11-17 19:30 | NUR ---
TEMP 96.9 AXILLARY - PLACED WARM BLANKETS ON PATIENT
--- NOTE | 2019-11-17 19:59 | NUR ---
SCHEDULED AMIODARONE GIVEN EARLY - PATIENT IN AND OUT OF AFIB/FLUTTER WITH RATES IN 140s
--- NOTE | 2019-11-17 20:07 | NUR ---
SCHEDULED COREG GIVEN
--- NOTE | 2019-11-17 20:08 | NUR ---
PER PBX, DR. IRIZARRY COVERING FOR DR. MENDES - WILL ATTEMPT TO CONTACT DR. IRIZARRY REGARDING HR
--- NOTE | 2019-11-17 20:27 | NUR ---
PAGED DR. MENDES THROUGH HIS EXCHANGE
--- NOTE | 2019-11-17 20:32 | NUR ---
SPOKE WITH DR. MENDES: NOTIFIED OF AFIB WITH RVR. BLOOD PRESSURE, VASOPRESSOR SUPPORT, AND PATIENT STATUS. ORDERS TO GIVE DIGOXIN 1 MG IVP OVER 10 MINUTES, 0.125 MG DIGOXIN IVP MWF, STOP LEVO, START JENNY TO KEEP SBP > 100. ORDERS READBACK AND VERIFIED
[2019-11-17] MEDS ORDERED: DIGOXIN (250MCG/ML) 2 ML AMPULE ONE (20:42)
[2019-11-17] MEDS ORDERED: DIGOXIN (250MCG/ML) 2 ML AMPULE IV ONE (20:45)
--- NOTE | 2019-11-17 21:00 | NUR ---
UNABLE TO COMPLETE SEDATION VACATION AT THIS TIME: HEMODYNAMICALLY UNSTABLE. DOES MOVE HEAD AND SHOULDERS AROUND IN BED. WILL REASSESS SEDATION LEVEL. Addendum: 11/17/19 at 2256 by Cindy Lovett RN RN Amended: Links added.
--- NOTE | 2019-11-17 21:32 | NUR ---
SPOKE WITH PATIENT'S : AFTER PASSWORD VERIFIED, UPDATED ON PATIENT'S STATUS. INQUIRED ABOUT COMING TO VISIT, STATES DR. AQUINO WAS CONSIDERING LETTING HIM. ALSO REQUESTING CALL FROM MD FOR UPDATE IN THE AM.
--- NOTE | 2019-11-17 22:30 | NUR ---
GASTRIC RESIDUAL < 20 ML - STARTED TF AT 20 ML/HR
[2019-11-18] VITALS (102 sets, daily range): BP systolic 89–156; BP diastolic 50–89
[2019-11-18] MEDS: fentaNYL Drip 2500mCg/250mlNS 250 ML IV SCH ×2 (00:03→19:32)
--- NOTE | 2019-11-18 00:11 | NUR ---
MINIMAL GASTRIC RESIDUALS - CONTINUE TF
--- NOTE | 2019-11-18 00:11 | NUR ---
BACK IN NSR
--- NOTE | 2019-11-18 03:30 | NUR ---
WOUND CARE: NOTED WITH MACERATION DUE TO MOISTURE ON INNER THIGHS AND PERINEUM. WOUND PHOTO TAKEN. RE-CONSULTED WOUND CARE. PATTED ON THIN LAYER OF ZGUARD, PLACED PILLOW CASE BETWEEN LEGS FOR MOISTURE CONTROL.
[2019-11-18] MEDS ORDERED: SODIUM BICARBONATE 8.4% INJ 50ML SYRINGE ONE (04:19)
--- NOTE | 2019-11-18 04:30 | NUR ---
GASTRIC RESIDUAL MINIMAL - CONTINUE TF AT CURRENT RATE
--- NOTE | 2019-11-18 04:31 | NUR ---
BED BATH WITH CHG WIPES, GWEN CARE, COLON CARE, ORAL CARE, AND FULL LINEN CHANGE COMPLETED
--- NOTE | 2019-11-18 04:47 | NUR ---
SODIUM BICARB PULLED BY REGIONAL ACCOUNT MANAGER UNDER WRONG PATIENT - NON ADMINISTERED
[2019-11-18 04:55] LABS: Albumin 1.9 g/dL (3.4-5.0); Calcium 7.8 mg/dL (8.5-10.1); Potassium 4.7 mmol/L (3.5-5.1)
[2019-11-18 04:58] LABS: BUN/Creatinine Ratio 15.3; Bilirubin, Total 4.5 mg/dL (0.2-1.0); Hemoglobin 11.3 g/dL (12.2-16.2)
[2019-11-18 05:01] LABS: Hematocrit 34.8 % (36.0-46.0); Mean Corpuscular Hemoglobin 28.8 pg (28.0-32.0); Mean Corpuscular Hgb Conc. 32.4 g/dL (32.0-36.0); Mean Corpuscular Volume 88.9 fL (80.0-100.0); Platelet Count (auto) 56 10^3/uL (140-450); Red Blood Cells 3.91 10^6/uL (4.0-5.20); Red Cell Distribution Width 16.9 % (11.8-14.3); White Blood Cell 11.3 10^3/uL (4.4-10.8)
[2019-11-18 05:08] LABS: Band Neutrophils % (manual) 0; Basophils % (manual) 0 (0.0-2.0); Eosinophils % (manual) 0 (0-7); Monocytes % (manual) 0 (0-12); Promyelocytes % 0; Reactive Lymphocytes 0
[2019-11-18] MEDS: Osmolite 1.2 Cal One Liter GT SCH (05:11)
[2019-11-18] MEDS: MIDAZOLAM DRIP 50 mg/50mL 50 ML IV SCH ×2 (05:12→19:33)
[2019-11-18 05:33] LABS: Blast Cells 1; Lymphocytes % (manual) 4 (10.0-50.0); Metamyelocytes % 1; Myelocytes % 3
[2019-11-18] MEDS: ACCU-CHEK COMFORT CURVE STRIP VI SCH ×4 (05:54→23:37)
[2019-11-18] MEDS: InsuLIN REG 1unit/0.01ml Soln (100units/ml) SC SCH ×4 (05:54→23:37)
--- NOTE | 2019-11-18 07:08 | NUR ---
REPORT AND CARE ENDORSED TO GURJIT CHRIS
[2019-11-18] MEDS: DOBUTamine HCL 500 MG in D5W 5% 210 ML IV SCH (08:00)
--- NOTE | 2019-11-18 09:05 | NUR ---
SEDATION VACATION HELD- NOT HEMODYNAMICALLY STABLE Addendum: 11/18/19 at 1052 by Meghan Hansen RN Amended: Links added.
[2019-11-18] MEDS: cefTRIAXone 1GM/50ML D5W 50 ML IV SCH (09:43)
[2019-11-18] MEDS ORDERED: ENOXAPARIN SOD 80 MG/0.8ML SYRINGE SC SCH (10:00)
[2019-11-18] MEDS: PANTOPRAZOLE 40 MG/10 ML VIAL INJ IV SCH (10:05)
[2019-11-18] MEDS: CARVEDILOL 3.125 MG TAB PO SCH ×2 (10:06→21:59)
[2019-11-18] MEDS: AMIODARONE HCL 200 MG TAB GT SCH ×2 (10:06→21:51)
[2019-11-18] MEDS: DOPamine 1600MCG/ML D5W 250 ML IV SCH (10:58)
[2019-11-18] MEDS: NOREPINEPHRINE 8 MG/250ML KIT 250 ML IV SCH (11:26)
[2019-11-18] MEDS: FUROSEMIDE 100 MG/10ML VIAL IV SCH ×2 (11:44→21:58)
--- NOTE | 2019-11-18 11:45 | NUR ---
, TARYN CALLED PROVIDED PASSWORD. UPDATED ON STATUS THROUGHOUT THE NIGHT. ADDRESSED CONCERNS. HE IS REQUESTING MD CALL HIM FOR UPDATE ALSO. WILL NOTIFY
--- NOTE | 2019-11-18 12:22 | NUR ---
WOUND CARE NOTE: PATIENT HAS DEVELOPED SEVERE MASD TO PERINEUM, UPPER MEDIAL BILATERAL THIGHS, INTRAGLUTEAL SKIN AREAS. SHE IS WEEPING LARGE AMOUNTS FROM THE TISSUES. SHE HAS INDWELLING COLON CATHETER IN PLACE. PATIENT HAS SKIN EROSION NOTED. BEDSIDE NURSE PHOTOGRAPHED SKIN UPON ASSESSMENT FOR REFERENCE. ZGUARD NOT STAYING ON SKIN. ADVISED BEDSIDE NURSE TO APPLY THICK LAYERS OF ZGUARD ONTO LARGE XEROFORM SHEETS. APPLY TO SKIN. NO TAPE TO SKIN. CHANGE NEEDED. NEXT WOUND CARE FOLLOW UP VISIT SCHEDULED FOR 11/20/19. WILL CONTINUE TO MONITOR. Addendum: 11/18/19 at 1936 by Cyndi Rich RN Amended: Links added.
[2019-11-18] MEDS: DOXYCYCLINE 100MG/250ML 250 ML IV SCH (12:29)
--- NOTE | 2019-11-18 12:33 | NUR ---
DR AQUINO AT BEDSIDE DISCUSSED PATIENTS STATUS AND PLAN OF CARE. DR AQUINO CALLED AND SPOKE WITH .
--- NOTE | 2019-11-18 19:10 | NUR ---
OPENING SHIFT RECEIVED REPORT FROM DAY SHIFT RN. ASSUME CARE OF PATIENT. PATIENT INTUBATED AND SEDATED WITH NO SIGNS OR SYMPTOMS OF SOB, PAIN OR DISTRESS. POSITIVE COUGH AND GAG. RIGHT INTERNAL JUGULAR TLC AND LEFT INTERNAL JUGULAR MINERVA CATHETER - CLEAN/DRY/INTACT. COLON HUNG TO GRAVITY. SEDATION: VERSED - 3MG/HR FENTANYL - 125MCG/HR VASOPRESSORS: DOBUTAMINE - 5MCG/KG/MIN FIXED REPOSITIONED FOR COMFORT. BED IN LOWEST POSITION, SIDE RAILS UP X2. WILL CONTINUE TO MONITOR.
[2019-11-18] MEDS: PHENYLEPHRINE INJ 40 MG in SODIUM CHL 0.9% 250 ML IV SCH (20:43)
[2019-11-18] MEDS ORDERED: DOBUTAMINE IV ONE (23:19)
[2019-11-19] VITALS (83 sets, daily range): BP systolic 97–126; BP diastolic 47–74
[2019-11-19] MEDS: DOBUTamine HCL 500 MG in D5W 5% 210 ML IV SCH ×2 (03:57→20:00)
--- NOTE | 2019-11-19 05:10 | NUR ---
MORNING CARE PERFORMED MORNING CARE WITH CHG WIPES AND WASH CLOTHS TO THE FACE. FULL LINEN CHANGE AND GOWN CHANGED. SKIN REASSESSED AT THIS TIME - ZGUARD APPLIED. ORAL AND COLON CARE PERFORMED. REPOSITIONED FOR COMFORT. BED IN LOWEST POSITION, SIDE RAILS UP X2. WILL CONTINUE TO MONITOR.
[2019-11-19 05:37] LABS: Albumin 1.6 g/dL (3.4-5.0); BUN/Creatinine Ratio 16.5; Bilirubin, Total 3.4 mg/dL (0.2-1.0); Calcium 7.5 mg/dL (8.5-10.1); Total Protein 4.3 g/dL (6.4-8.2)
[2019-11-19 05:40] LABS: Basophils # (auto) 0 10 ^3/uL (0-0.2); Basophils % (auto) 0.3 % (0.0-2.0); Eosinophils # (auto) 0.2 10 ^3/uL (0-0.8); Eosinophils % (auto) 1.7 % (0.0-7.0); Hematocrit 31.4 % (36.0-46.0); Hemoglobin 10.6 g/dL (12.2-16.2); Lymphocytes # (auto) 0.5 10 ^3/uL (0.4-5.4); Mean Corpuscular Hemoglobin 29.5 pg (28.0-32.0); Mean Corpuscular Hgb Conc. 33.9 g/dL (32.0-36.0); Mean Corpuscular Volume 87.2 fL (80.0-100.0); Monocytes # (auto) 0.6 10 ^3/uL (0-1.3); Monocytes % (auto) 6.4 % (0.0-12.0); Neutrophils # (auto) 8.3 10 ^3/uL (1.6-8.6); Neutrophils % (auto) 86.6 % (37.0-80.0); Nucleated Red Blood Cells % 0.5 %; Platelet Count (auto) 58 10^3/uL (140-450); Red Cell Distribution Width 16.4 % (11.8-14.3); White Blood Cell 9.6 10^3/uL (4.4-10.8)
[2019-11-19] MEDS: InsuLIN REG 1unit/0.01ml Soln (100units/ml) SC SCH ×3 (06:00→20:13)
--- NOTE | 2019-11-19 06:13 | NUR ---
Respiratory note: RECEIVED PATIENT ON V8 CARESCAPE VENT ORALLY INTUBATED WITH AN 8.0 ETT SECURED VIA KARIN AT THE 22CM MARKING AT THE LIP, AND MECHANICALLY VENTILATED WITH THE ABOVE CHARTED SETTINGS. SPO2 100%, LUNG SOUNDS CLEAR/DIM T/O. SCANT AMOUNT OF THIN CLEAR SECRETIONS WHEN SUCTIONED. SKIN IS WARM/DRY TO THE TOUCH AND IS INTACT NEAR KARIN SITE. THERE IS A NGT IN THE LEFT NARE AND IT IS SECURED TO THE NOSE, A TRIPLE LUMEN CENTRAL LINE IS PLACED IN THE RIGHT IJ, AMD A MINERVA CATH IS PLACED IN THE LEFT SIDE NECK. PITTING EDEMA NOTED IN BILATERAL UPPER EXTREMITIES, WELL LOWER EXTREMITIES. LEG SEQUENTIALS ARE ON AND OPERATIONAL. NO NEW AM CXR TO REPORT. PATIENT IS UNRESPONSIVE TO BOTH VERBAL/TACTILE STIMULI AND IS SEDATED ON VERSED AND FENTANYL DRIPS. SHE IS RESTING COMFORTABLY AND TOLERATING VENT WELL, NO CHANGES MADE. VENT PLUGGED INTO RED OUTLET AND ALL ALARMS ARE SET AND AUDIBLE. WILL CONTINUE TO ASSESS PATIENT WELL VENTILATOR FUNCTION.
[2019-11-19] MEDS: ACCU-CHEK COMFORT CURVE STRIP VI SCH ×3 (06:24→20:14)
--- NOTE | 2019-11-19 07:21 | NUR ---
END OF SHIFT REPORT GIVEN TO DAY SHIFT RN. CARE ENDORSED.
--- NOTE | 2019-11-19 08:00 | NUR ---
Patient received in report. Patient currently calm without issues. gas appliance servicer at bedside beginning dialysis and family member called to receive update.
[2019-11-19] MEDS ORDERED: SODIUM CHL 0.9% 1000 ML BAG XX ONE (08:45)
[2019-11-19] MEDS ORDERED: ALBUMIN 25% 100 ML IV STA (08:46)
[2019-11-19] MEDS: AMIODARONE HCL 200 MG TAB GT SCH ×2 (10:00→22:00)
[2019-11-19] MEDS: DIGOXIN (250MCG/ML) 2 ML AMPULE IV SCH (10:00)
--- NOTE | 2019-11-19 11:00 | NUR ---
Patient continues on dialysis and is tolerating well. JENNY restarted to maintain patient's blood pressure and patient is tolerating dialysis well at this time.
--- NOTE | 2019-11-19 12:00 | NUR ---
Patient completed dialysis. JENNY remains on as systolic BP decreases substantially when titrated down. BP 128/74 at this time.
[2019-11-19] MEDS: fentaNYL Drip 2500mCg/250mlNS 250 ML IV SCH (12:17)
[2019-11-19] MEDS: PANTOPRAZOLE 40 MG/10 ML VIAL INJ IV SCH (12:17)
[2019-11-19] MEDS: FUROSEMIDE 100 MG/10ML VIAL IV SCH ×2 (12:22→22:00)
[2019-11-19] MEDS: MIDAZOLAM DRIP 50 mg/50mL 50 ML IV SCH (12:28)
[2019-11-19] MEDS: CARVEDILOL 3.125 MG TAB PO SCH ×2 (12:29→22:00)
[2019-11-19] MEDS: PHENYLEPHRINE INJ 40 MG in SODIUM CHL 0.9% 250 ML IV SCH (13:23)
--- NOTE | 2019-11-19 13:27 | NUR ---
Gave patient medications late today following completion of dialysis. Patient remains on JENNY to bolster BP. Sedation increased slightly to help patient relax as she was biting on the tube. Now patient is comfortable; no signs sx of distress.
--- NOTE | 2019-11-19 13:44 | NUR ---
Nutrition Followup Notes Wt: 91.0 kg Pt intubated and sedated. Pt with EN nutrition support Jevity 1.2 @ 40ml/hr, tolerating well per RN. Noted pt is active for HD. Suggest EN support Nepro with Carb Steady 1.8 @ 40 ml/hr goal rate d/t pt is active for HD. Will continue to monitor PO status, skin status, pertinent labs and weight trends. Will f/u in 2-3 days. Est Energy needs ABW 65 [id number] kcals (23-25 kcal/kgABW), Est Protein needs: 84-101 gms/day (1-1.2g/kg BW 84kg r/t pt started HD). Will continue to monitor and reassess prn. LABS: BUN 73H, Creat 4.43H, GFR 11L, Alb 1.6L, Ca 8.2L GI: Pt with incontinence per RN doc. BS: 10 high risk. Refer to wound assessment report for full details. PES: 1) Altered nutrition related lab values r.t current chronic medical condition aeb elev RFT mod hypoalb hypocalcemia, hyperglycemia 2) Impaired swallowing r.t current medical condition aeb pt`s intubated sedated with order of NPO Comments Will continue to monitor NPO status, skin status, pertinent labs and weight trends. Will f/u in 2-3 days. 1) Consider changing TF to Nepro CS at 40 ml/hr goal rate as tolerated and per MD approval, and 1 pkt prostat BID d/t pt starting HD 2) consider MVI/C bid. 3) advance diet as medically feasible. 4) continue current plan of care
[2019-11-19 14:52] LABS: Hepatitis A Ab IgM Negative
[2019-11-19 14:53] LABS: Hepatitis B Surface Antigen Negative (Negative)
[2019-11-19 14:55] LABS: Hepatitis C Antibody Negative (Negative)
[2019-11-19 15:15] LABS: Hepatitis B Core IgM Negative
--- NOTE | 2019-11-19 15:57 | NUR ---
Patient under moderate sedation now. Patient without signs or symptoms of distress at this time.
--- NOTE | 2019-11-19 17:42 | NUR ---
Patient stable and continues moderate sedation at the end of shift. No sign or symptom of acute distress at end of shift.
--- NOTE | 2019-11-19 19:15 | NUR ---
OPENING SHIFT RECEIVED REPORT FROM DAY SHIFT RN. ASSUME CARE OF PATIENT. PATIENT INTUBATED AND SEDATED WITH NO SIGNS OR SYMPTOMS OF SOB, PAIN OR DISTRESS. POSITIVE COUGH AND GAG. RIGHT INTERNAL JUGULAR TLC AND LEFT INTERNAL JUGULAR MINERVA CATHETER - CLEAN/DRY/INTACT. COLON HUNG TO GRAVITY. SEDATION: VERSED - 5MG/HR FENTANYL - 150MCG/HR VASOPRESSORS: DOBUTAMINE - 5MCG/KG/MIN FIXED REPOSITIONED FOR COMFORT. BED IN LOWEST POSITION, SIDE RAILS UP X2. WILL CONTINUE TO MONITOR.
[2019-11-19] MEDS: NOREPINEPHRINE 8 MG/250ML KIT 250 ML IV SCH (20:10)
[2019-11-20] VITALS (101 sets, daily range): BP systolic 78–119; BP diastolic 45–76
[2019-11-20] MEDS: MIDAZOLAM DRIP 50 mg/50mL 50 ML IV SCH ×4 (00:45→18:52)
[2019-11-20] MEDS: fentaNYL Drip 2500mCg/250mlNS 250 ML IV SCH ×2 (00:45→18:57)
--- NOTE | 2019-11-20 04:10 | NUR ---
MORNING CARE / CENTRAL LINE DRESSING CHANGED PERFORMED MORNING CARE WITH CHG WIPES AND WASH CLOTHS TO THE FACE. FULL LINEN CHANGE AND GOWN CHANGED. SKIN REASSESSED AT THIS TIME - ZGUARD APPLIED. ORAL AND COLON CARE PERFORMED. CENTRAL LINE DRESSING CHANGED. REPOSITIONED FOR COMFORT. BED IN LOWEST POSITION, SIDE RAILS UP X2. WILL CONTINUE TO MONITOR.
[2019-11-20 04:26] LABS: Albumin 1.9 g/dL (3.4-5.0); Calcium 7.7 mg/dL (8.5-10.1); Potassium 4.6 mmol/L (3.5-5.1)
[2019-11-20 04:27] LABS: Hemoglobin 10.2 g/dL (12.2-16.2)
[2019-11-20 04:29] LABS: BUN/Creatinine Ratio 14.9; Bilirubin, Total 4.1 mg/dL (0.2-1.0); Hematocrit 30.1 % (36.0-46.0); Mean Corpuscular Hemoglobin 29.7 pg (28.0-32.0); Mean Corpuscular Hgb Conc. 33.8 g/dL (32.0-36.0); Mean Corpuscular Volume 87.9 fL (80.0-100.0); Platelet Count (auto) 56 10^3/uL (140-450); Red Blood Cells 3.43 10^6/uL (4.0-5.20); Red Cell Distribution Width 16.4 % (11.8-14.3); Total Protein 4.5 g/dL (6.4-8.2); White Blood Cell 10.5 10^3/uL (4.4-10.8)
[2019-11-20 04:33] LABS: Basophils % (manual) 0 (0.0-2.0); Blast Cells 0; Metamyelocytes % 0; Myelocytes % 0; Promyelocytes % 0; Reactive Lymphocytes 0
[2019-11-20 05:32] LABS: Band Neutrophils % (manual) 3; Eosinophils % (manual) 1 (0-7); Lymphocytes % (manual) 3 (10.0-50.0); Monocytes % (manual) 6 (0-12)
[2019-11-20] MEDS: InsuLIN REG 1unit/0.01ml Soln (100units/ml) SC SCH ×2 (06:00)
[2019-11-20] MEDS: ACCU-CHEK COMFORT CURVE STRIP VI SCH ×2 (06:00)
[2019-11-20] MEDS: PHENYLEPHRINE INJ 40 MG in SODIUM CHL 0.9% 250 ML IV SCH (06:03)
--- NOTE | 2019-11-20 06:54 | NUR ---
Respiratory note: RECEIVED PATIENT ON V8 CARESCAPE VENT ORALLY INTUBATED WITH AN 8.0 ETT SECURED VIA KARIN AT THE 22CM MARKING AT THE LIP, AND MECHANICALLY VENTILATED WITH THE CHARTED SETTINGS. SPO2 100%, LUNG SOUNDS CLEAR/DIM T/O. SCANT AMOUNT OF THIN CLEAR SECRETIONS WHEN SUCTIONED. SKIN IS WARM/DRY TO THE TOUCH AND IS INTACT NEAR KARIN SITE. THERE IS A NGT IN THE LEFT NARE AND IT IS SECURED TO THE NOSE, A TRIPLE LUMEN CENTRAL LINE IS PLACED IN THE RIGHT IJ, AND A MINERVA CATH IS PLACED IN THE LEFT SIDE NECK. PITTING EDEMA NOTED IN BILATERAL UPPER EXTREMITIES, WELL LOWER EXTREMITIES. LEG SEQUENTIALS ARE ON AND OPERATIONAL. AM CXR ASSESSED AND IT SHOWS ETT IN SATISFACTORY POSITION SITING APPROX 3.3CM ABOVE THE SHERLYN; NO INDICATION TO ADJUST TUBE AT THIS TIME. PATIENT IS RESPONSIVE TO BOTH VERBAL/TACTILE STIMULI AND IS SEDATED ON VERSED AND FENTANYL DRIPS. SHE IS RESTING COMFORTABLY AND TOLERATING VENT WELL, NO CHANGES MADE. VENT PLUGGED INTO RED OUTLET AND ALL ALARMS ARE SET AND AUDIBLE. WILL CONTINUE TO ASSESS PATIENT WELL VENTILATOR FUNCTION. ABG DRAWN.
--- NOTE | 2019-11-20 07:21 | NUR ---
END OF SHIFT REPORT GIVEN TO DAY SHIFT RN. CARE ENDORSED.
--- NOTE | 2019-11-20 08:49 | NUR ---
Pt opens eyes to name and tracks on Versed /fentanyl pupils equal and reactive In sinus rythm no ectopy on 5mcg /kg /min of Dobutamine Ef 10 % Suctioned old blood thicck good cough reflex Addendum: 11/20/19 at 0949 by МАРИЯ PLEITEZ RN RN When feeding was aspirated there was blood noted will observe residuals 40
[2019-11-20] MEDS: PANTOPRAZOLE 40 MG/10 ML VIAL INJ IV SCH (10:00)
[2019-11-20] MEDS: FUROSEMIDE 100 MG/10ML VIAL IV SCH ×2 (10:37→11:05)
[2019-11-20] MEDS: AMIODARONE HCL 200 MG TAB GT SCH ×2 (10:38→22:13)
[2019-11-20] MEDS: CARVEDILOL 3.125 MG TAB PO SCH ×2 (10:39→22:20)
--- NOTE | 2019-11-20 16:46 | NUR ---
WOUND CARE NOTE: Wound care in to see patient for skin integrity monitoring. Patient continue resting in ICU bed in Rm. 112. Patient is intubated, sedated and mechanically ventilated. Patient appears to be in no pain using [place] Faces Pain Scale. Her Jaime score is 13. Skin assessment done with the assistance of student nurse,brim stretching machine operator. Patient developed severed moisture associated skin damage to buttocks, perineum, posterior thighs. Patient passed small amount of soft stool. Avani care given,care pad changed. Patient receiving BID/PRN cleaning and application of X Guard cream with Xeroform dressing. Repositioned patient for comfort facing her Rt side, redistributed pressure points with pillows. Patient tolerated well. RECOMMENDATION: Continuation of all wound care orders prescribed by MD, continue with skin/wound preventative plan of care, continue monitoring by wound care while intubated and Jaime score is <18. Addendum: 11/20/19 at 1810 by Holley Swenson RN Amended: Links added.
--- NOTE | 2019-11-20 21:00 | NUR ---
Performed oral care on pt
[2019-11-20] MEDS ORDERED: FUROSEMIDE 100 MG/10ML VIAL IV ONE (22:30)
--- NOTE | 2019-11-20 23:00 | NUR ---
CHG bath completed
[2019-11-21] VITALS (74 sets, daily range): BP systolic 91–132; BP diastolic 51–90
[2019-11-21] MEDS ORDERED: DOBUTamine 1000MCG/ML 250 ML IV ONE (02:22)
[2019-11-21] MEDS: DOBUTamine HCL 500 MG in D5W 5% 210 ML IV SCH ×2 (02:36→21:20)
--- NOTE | 2019-11-21 03:15 | NUR ---
David labs on pt.
[2019-11-21 03:24] LABS: Hematocrit 28.5 % (36.0-46.0); Hemoglobin 9.7 g/dL (12.2-16.2); Mean Corpuscular Hemoglobin 29.5 pg (28.0-32.0); Mean Corpuscular Hgb Conc. 33.9 g/dL (32.0-36.0); Platelet Count (auto) 69 10^3/uL (140-450); Red Blood Cells 3.27 10^6/uL (4.0-5.20); Red Cell Distribution Width 16.7 % (11.8-14.3); White Blood Cell 10.2 10^3/uL (4.4-10.8)
[2019-11-21 03:28] LABS: Basophils % (manual) 0 (0.0-2.0); Blast Cells 0; Metamyelocytes % 0; Promyelocytes % 0; Reactive Lymphocytes 0
[2019-11-21 03:45] LABS: Albumin 1.9 g/dL (3.4-5.0); BUN/Creatinine Ratio 14.3; Calcium 8.1 mg/dL (8.5-10.1); Potassium 4.8 mmol/L (3.5-5.1)
[2019-11-21 03:47] LABS: Bilirubin, Total 3.3 mg/dL (0.2-1.0); Total Protein 4.6 g/dL (6.4-8.2)
--- NOTE | 2019-11-21 05:00 | NUR ---
Pt received chest xray
[2019-11-21 05:24] LABS: Band Neutrophils % (manual) 6; Lymphocytes % (manual) 7 (10.0-50.0); Monocytes % (manual) 5 (0-12)
[2019-11-21 05:25] LABS: Eosinophils % (manual) 1 (0-7)
--- NOTE | 2019-11-21 05:30 | NUR ---
Performed Central line dressing change
[2019-11-21 05:33] LABS: Myelocytes % 0
--- NOTE | 2019-11-21 06:00 | NUR ---
Tube feed stopped d/t pt to be going on cpap per orders. Pt maintained stable vital signs on shift. Turned pt q2h. Severe excoriation to pt's sravanthi area including perianal area. Z-Guard applied. Pt to be trialed on CPAP after dialysis.
[2019-11-21] MEDS ORDERED: SODIUM CHL 0.9% 1000 ML BAG XX ONE (07:00)
[2019-11-21] MEDS: fentaNYL Drip 2500mCg/250mlNS 250 ML IV SCH ×2 (07:05→21:22)
[2019-11-21] MEDS: MIDAZOLAM DRIP 50 mg/50mL 50 ML IV SCH ×4 (07:06→18:40)
[2019-11-21 08:41] LABS: Hemoglobin 9.9 g/dL (12.2-16.2)
[2019-11-21] MEDS ORDERED: ENOXAPARIN SOD 100 MG/1 ML SYRINGE SC SCH (10:00)
--- NOTE | 2019-11-21 10:12 | NUR ---
Pt opens eyes to name /tracks and nodds and shook head appropriately .Pt has sclerodema and lower part of the membrane yellowish Pupils equal and reactive to light On versed for sedation In sinus rythym No BP support meds .but Dobutamine CHF ET to Vent no breathing problem Sats good Skin incontinece demartitis Z Guard applied seen by Wound nurse yesterday Addendum: 11/21/19 at 1207 by МАРИЯ PLEITEZ RN RN Dialysis nurse came to Dialize pt but met a lot of resistance pt even positioned to right side no success Addendum: 11/21/19 at 2038 by МАРИЯ PLEITEZ RN RN Dialysis catheter said to be not working regardless of multiple intervention Dr Stapleton said he does not put Aj cath any longer and SHIVA LOPEZ not available IR said he only does permacaths Consent form in the chart Pt very appropritae nodds and shake head Skin reddish large BM times one
[2019-11-21] MEDS ORDERED: CATHFLO ACTIVASE (ALTEPLASE) 2 MG VIAL IV STA (11:14)
--- NOTE | 2019-11-21 12:42 | NUR ---
Nutrition Followup Notes Wt: 86.3 kg Pt intubated and sedated. Pt with EN nutrition support on hold for now D/t pt scheduled for HD per RN. Conveyed suggested EN support Nepro with Carb Steady 1.8 @ 40 ml/hr goal rate d/t pt is active for HD to RN. Will continue to monitor PO status, skin status, pertinent labs and weight trends. Will f/u in 2-3 days. Est Energy needs ABW 65 [id number] kcals (23-25 kcal/kgABW), Est Protein needs: 84-101 gms/day (1-1.2g/kg BW 84kg r/t pt started HD). Will continue to monitor and reassess prn. LABS: BUN 62H, Creat 4.34H, GFR 11L, Alb 1.9L, Ca 8.1L GI: Pt had 1 BM on 11/18 per RN doc. BS: 14 mod risk. Refer to wound assessment report for full details. PES: 1) Altered nutrition related lab values r.t current chronic medical condition aeb elev RFT mod hypoalb hypocalcemia, hyperglycemia 2) Impaired swallowing r.t current medical condition aeb pt`s intubated sedated with order of NPO Comments Will continue to monitor NPO status, skin status, pertinent labs and weight trends. Will f/u in 2-3 days. 1) Consider changing TF to Nepro CS at 40 ml/hr goal rate as tolerated and per MD approval, and 1 pkt prostat BID d/t pt starting HD 2) consider MVI/C bid. 3) advance diet as medically feasible. 4) continue current plan of care
[2019-11-21] MEDS: FUROSEMIDE 100 MG/10ML VIAL IV SCH ×2 (15:12→22:00)
[2019-11-21] MEDS: DIGOXIN (250MCG/ML) 2 ML AMPULE IV SCH (15:13)
[2019-11-21] MEDS: AMIODARONE HCL 200 MG TAB GT SCH ×2 (15:14→22:00)
[2019-11-21] MEDS: PANTOPRAZOLE 40 MG/10 ML VIAL INJ IV SCH (15:14)
[2019-11-21] MEDS: CARVEDILOL 3.125 MG TAB PO SCH ×2 (15:15→22:00)
--- NOTE | 2019-11-21 18:45 | NUR ---
RT NOTE RECEIVED PT INTUBATED AND ON VENT V8 ON STATED SETTINGS WITH HEATED WIRE CIRCUIT. VENT IS PLUGGED TO RED OUTLET. ALARMS ARE ON AND AUDIBLE TO NURSING. AMBU BAG AT BEDSIDE AND CONNECTED TO O2 SOURCE. 8.0 ETT IS SECURED WITH ANCHORFAST AT 24 CM TO THE ORAL LEFT AND MOVED TO THE CENTER. BILATERAL BS ARE CTA. PT WAS SUCTIONED FOR SMALL RETURN FROM ETT AND SMALL RETURN ORALLY. PT APPEARS COMFORTABLE AT THIS TIME.PT TEMP 97.8, CIRCUIT TEMP 34.1, WATER LEVEL IS ADEQUATE, POX 97% Addendum: 11/21/19 at 1853 by Bobbi Hudson RT Amended: Links added.
--- NOTE | 2019-11-21 20:10 | NUR ---
RT NOTE ROUTINE VENT CHECK DONE. PT INTUBATED AND ON VENT V8 ON STATED SETTINGS WITH HEATED WIRE CIRCUIT. VENT IS PLUGGED TO RED OUTLET. ALARMS ARE ON AND AUDIBLE TO NURSING. AMBU BAG AT BEDSIDE AND CONNECTED TO O2 SOURCE. 8.0 ETT IS SECURED WITH ANCHORFAST AT 24 CM TO THE ORAL CENTER. PT APPEARS COMFORTABLE AT THIS TIME. CIRCUIT TEMP 34.1, WATER LEVEL IS ADEQUATE, POX 100% Addendum: 11/21/19 at 2026 by Bobbi Hudson RT Amended: Links added.
[2019-11-21] MEDS ORDERED: EPOETIN ALFA 10,000 UNIT/1 ML VIAL SC ONE (21:00)
--- NOTE | 2019-11-21 21:54 | NUR ---
RT NOTE ROUTINE VENT CHECK DONE. PT INTUBATED AND ON VENT V8 ON STATED SETTINGS WITH HEATED WIRE CIRCUIT. VENT IS PLUGGED TO RED OUTLET. ALARMS ARE ON AND AUDIBLE TO NURSING. AMBU BAG AT BEDSIDE AND CONNECTED TO O2 SOURCE. 8.0 ETT IS SECURED WITH ANCHORFAST AT 24 CM TO THE ORAL CENTER. PT APPEARS COMFORTABLE AT THIS TIME. PT SUCTIONED FOR SMALL RETURN. CIRCUIT TEMP 33.7, WATER LEVEL IS ADEQUATE, POX 100% Addendum: 11/21/19 at 2159 by Bobbi Hudson RT Amended: Links added.
--- NOTE | 2019-11-21 23:59 | NUR ---
RT NOTE ROUTINE VENT CHECK DONE. PT INTUBATED AND ON VENT V8 ON STATED SETTINGS WITH HEATED WIRE CIRCUIT. VENT IS PLUGGED TO RED OUTLET. ALARMS ARE ON AND AUDIBLE TO NURSING. AMBU BAG AT BEDSIDE AND CONNECTED TO O2 SOURCE. 8.0 ETT IS SECURED WITH ANCHORFAST AT 24 CM TO THE ORAL CENTER. PT APPEARS COMFORTABLE AT THIS TIME. CIRCUIT TEMP 33.7, WATER LEVEL IS ADEQUATE, POX 100% Addendum: 11/22/19 at 0026 by Bobbi Hudson RT Amended: Links added.
[2019-11-22] VITALS (97 sets, daily range): BP systolic 88–138; BP diastolic 45–94
[2019-11-22] MEDS: MIDAZOLAM DRIP 50 mg/50mL 50 ML IV SCH ×2 (01:00→22:00)
--- NOTE | 2019-11-22 01:58 | NUR ---
RT NOTE ROUTINE VENT CHECK DONE. PT INTUBATED AND ON VENT V8 ON STATED SETTINGS WITH HEATED WIRE CIRCUIT. VENT IS PLUGGED TO RED OUTLET. ALARMS ARE ON AND AUDIBLE TO NURSING. AMBU BAG AT BEDSIDE AND CONNECTED TO O2 SOURCE. 8.0 ETT IS SECURED WITH ANCHORFAST AT 24 CM TO THE ORAL CENTER. PT APPEARS COMFORTABLE AT THIS TIME. CIRCUIT TEMP 34.0, WATER LEVEL IS ADEQUATE, POX 100% Addendum: 11/22/19 at 0209 by Bobbi Hudson RT Amended: Links added.
--- NOTE | 2019-11-22 04:08 | NUR ---
RT NOTE ROUTINE VENT CHECK DONE. PT INTUBATED AND ON VENT V8 ON STATED SETTINGS WITH HEATED WIRE CIRCUIT. VENT IS PLUGGED TO RED OUTLET. ALARMS ARE ON AND AUDIBLE TO NURSING. AMBU BAG AT BEDSIDE AND CONNECTED TO O2 SOURCE. 8.0 ETT IS SECURED WITH ANCHORFAST AT 24 CM TO THE ORAL CENTER. PT APPEARS COMFORTABLE AT THIS TIME. CIRCUIT TEMP 33.7, WATER LEVEL IS ADEQUATE, POX 100% Addendum: 11/22/19 at 0420 by Bobbi Hudson RT Amended: Links added.
[2019-11-22 05:28] LABS: Hematocrit 27.6 % (36.0-46.0); Hemoglobin 9.2 g/dL (12.2-16.2); Mean Corpuscular Hemoglobin 28.9 pg (28.0-32.0); Mean Corpuscular Hgb Conc. 33.3 g/dL (32.0-36.0); Platelet Count (auto) 82 10^3/uL (140-450); Red Blood Cells 3.17 10^6/uL (4.0-5.20); Red Cell Distribution Width 17.4 % (11.8-14.3); White Blood Cell 9.2 10^3/uL (4.4-10.8)
[2019-11-22 05:38] LABS: Basophils % (manual) 0 (0.0-2.0); Blast Cells 0; Eosinophils % (manual) 0 (0-7); Metamyelocytes % 0; Myelocytes % 0; Promyelocytes % 0; Reactive Lymphocytes 0
[2019-11-22 05:43] LABS: Albumin 1.9 g/dL (3.4-5.0); Potassium 5.1 mmol/L (3.5-5.1)
[2019-11-22 05:48] LABS: BUN/Creatinine Ratio 14.5; Bilirubin, Total 2.7 mg/dL (0.2-1.0); Total Protein 4.7 g/dL (6.4-8.2)
[2019-11-22 06:50] LABS: Band Neutrophils % (manual) 7; Lymphocytes % (manual) 7 (10.0-50.0); Monocytes % (manual) 3 (0-12)
[2019-11-22] MEDS ORDERED: HEPARIN 1,000 UNITS/ml 1ML VIAL ONE (07:47)
--- NOTE | 2019-11-22 07:51 | NUR ---
AT BEDSIDE: Dr. Lowe at bedside for HD catheter replacement.
--- NOTE | 2019-11-22 08:20 | NUR ---
AT BEDSIDE: Dr. Boyle at bedside, plan for day is to perform CPAP trial after patient received hemodialysis.
[2019-11-22] MEDS ORDERED: HEPARIN 1,000 UNITS/ml 1ML VIAL IV ONE (09:00)
--- NOTE | 2019-11-22 09:00 | NUR ---
SEDATION VACATION: Sedation vacation to be performed after completion of dialysis. Addendum: 11/22/19 at 0939 by Socorro Gilbert RN Amended: Links added.
--- NOTE | 2019-11-22 09:14 | NUR ---
HEMODIALYSIS: Hemodialysis nurse at bedside.
[2019-11-22] MEDS ORDERED: SODIUM CHL 0.9% 1000 ML BAG XX ONE (09:45)
--- NOTE | 2019-11-22 12:45 | NUR ---
ELIMINATION; Patient had moderate size liquid BM, complete linen change and skin care provided.
--- NOTE | 2019-11-22 14:35 | NUR ---
CPAP TRIAL ATTEMPTED PEEP 5, PS 8,FIO2 30%, PER DR. AQUINO'S ORDERS. PT. IS AWAKE AND ALERT, BUT NOT FOLLOWING COMMANDS. PT. THRASHES HER HEAD SIDE TO SIDE. PT'S HR 42,SPO2 72%, IN ABOUT A MINUTE INTO CPAP. PT. RETURNED TO AC MODE WITH PRIOR SETTINGS AND PLACED ON 100% FOR 2MIN. HR INCREASED TO 90'S WELL SP02 98%. RN. ENRIQUEZ NOTIFIED OF PT. FAILING CPAP TRIAL.
--- NOTE | 2019-11-22 14:35 | NUR ---
CPAP TRIAL ABORTED; Patient placed on CPAP by Keshia LOZOYA, patient's HR decreased to 37 directly after placement on CPAP. Oxygen saturations also decreased to the 70's. Patient placed back on previous ventilator settings.
[2019-11-22] MEDS: FUROSEMIDE 100 MG/10ML VIAL IV SCH ×2 (15:06→21:37)
[2019-11-22] MEDS: PANTOPRAZOLE 40 MG/10 ML VIAL INJ IV SCH (15:06)
[2019-11-22] MEDS: AMIODARONE HCL 200 MG TAB GT SCH ×2 (15:07→21:37)
[2019-11-22] MEDS: CARVEDILOL 3.125 MG TAB PO SCH ×2 (15:07→21:37)
[2019-11-22] MEDS: DOBUTamine HCL 500 MG in D5W 5% 210 ML IV SCH (15:16)
--- NOTE | 2019-11-22 16:15 | NUR ---
ELIMINATION; Patient had moderate size liquid BM, skin care and partial linen change provided.
--- NOTE | 2019-11-22 17:35 | NUR ---
FAMILY: Spoke with patient's , updated him on inability to perform CPAP trial due to episode of bradycardia. Discussed with him that plan will be to re-attempt weaning trial tomorrow.
--- NOTE | 2019-11-22 19:40 | NUR ---
ASSUMED PT'S CARE FROM DAY RN. PATIENTS TF WILL REMAIN ARGUELLES FOR ANOTHER ATTEMPT TO EXTUBATE IN AM.
[2019-11-22] MEDS ORDERED: EPOETIN ALFA 10,000 UNIT/1 ML VIAL SC ONE (21:00)
[2019-11-23] VITALS (93 sets, daily range): BP systolic 102–156; BP diastolic 51–102
[2019-11-23 04:31] LABS: Basophils # (auto) 0 10 ^3/uL (0-0.2); Basophils % (auto) 0.1 % (0.0-2.0); Eosinophils # (auto) 0 10 ^3/uL (0-0.8); Eosinophils % (auto) 0.2 % (0.0-7.0); Hematocrit 28.8 % (36.0-46.0); Hemoglobin 9.4 g/dL (12.2-16.2); Lymphocytes # (auto) 0.5 10 ^3/uL (0.4-5.4); Lymphocytes % (auto) 4.5 % (10.0-50.0); Mean Corpuscular Hemoglobin 28.5 pg (28.0-32.0); Mean Corpuscular Hgb Conc. 32.8 g/dL (32.0-36.0); Mean Corpuscular Volume 86.9 fL (80.0-100.0); Monocytes # (auto) 0.5 10 ^3/uL (0-1.3); Monocytes % (auto) 4.9 % (0.0-12.0); Neutrophils # (auto) 9.9 10 ^3/uL (1.6-8.6); Neutrophils % (auto) 90.3 % (37.0-80.0); Nucleated Red Blood Cells % 0.1 %; Platelet Count (auto) 101 10^3/uL (140-450); Red Blood Cells 3.31 10^6/uL (4.0-5.20); Red Cell Distribution Width 16.6 % (11.8-14.3)
[2019-11-23 04:51] LABS: BUN/Creatinine Ratio 13.1; Calcium 8.1 mg/dL (8.5-10.1); Potassium 4.8 mmol/L (3.5-5.1)
[2019-11-23] MEDS: fentaNYL Drip 2500mCg/250mlNS 250 ML IV SCH (06:20)
[2019-11-23] MEDS ORDERED: DOBUTamine 1000MCG/ML 250 ML IV ONE (07:24)
[2019-11-23] MEDS: DOBUTamine HCL 500 MG in D5W 5% 210 ML IV SCH (07:32)
--- NOTE | 2019-11-23 08:38 | NUR ---
Respiratory note: PLACED PT ON CPAP TRIAL. WITHIN 5 SECONDS PT HAD AN APNEIC EPISODE AND HR DROPPED TO 26. VENT STOPPED CPAP TRIAL AND WENT BACK TO PREVIOUS SETTINGS. PT'S HR WENT BACK TO THE MID 90'S. RN AWARE OF INCIDENT.
[2019-11-23] MEDS: PANTOPRAZOLE 40 MG/10 ML VIAL INJ IV SCH (10:00)
[2019-11-23] MEDS: CARVEDILOL 3.125 MG TAB PO SCH ×2 (10:00→22:00)
[2019-11-23] MEDS: FUROSEMIDE 100 MG/10ML VIAL IV SCH ×2 (10:00→22:00)
[2019-11-23] MEDS: AMIODARONE HCL 200 MG TAB GT SCH ×2 (10:00→22:00)
--- NOTE | 2019-11-23 10:35 | NUR ---
AT BEDSIDE: Dr. Boyle at bedside, discussed prior attempt at CPAP trail and resulting bradycardia and apnea. states that she will call and speak to patient's . Requests that we repeat a CPAP trial, same results patient HR decreased into 20's, O2 sats decreased to 82% and patient became apneic.
--- NOTE | 2019-11-23 10:37 | NUR ---
Respiratory note: PT PLACED ON CPAP TRIAL AGAIN PER ORDER. PT HAD APNEIC EPISODE AT ABOUT 40SEC. HR DROPPED TO 24 AND SPO2 TO 82%. VENTILATOR WENT BACK TO PREVIOUS SETTINGS AFTER APNEIC EPISODE. PT VITAL BACK TO NORMAL AFTER GOING BACK TO A/C MODE. RN AND MD AT BEDSIDE FOR CPAP TRIAL. WILL NOTIFY PT'S OF INCIDENT.
--- NOTE | 2019-11-23 13:34 | NUR ---
DRESSING; Dressing to left IJ hemodialysis catheter changed.
--- NOTE | 2019-11-23 14:43 | NUR ---
Nutrition Followup Notes Wt: 86.0 kg Pt reintubated and sedated after failed CPAP trial. Per RN, EN nutrition support Osmolite 1.2 will be started @ 20ml/hr today. Will continue to monitor PO status, skin status, pertinent labs and weight trends. Will f/u in 2-3 days. Est Energy needs ABW 65 [id number] kcals (23-25 kcal/kgABW), Est Protein needs: 84-101 gms/day (1-1.2g/kg BW 84kg r/t pt started HD). Will continue to monitor and reassess prn. LABS: BUN 51H, Creat 3.9H, GFR 12L, Alb 1.9L, Ca 8.1L GI: Pt had 2 BM on 11/21 per RN doc. BS: 15 mod risk. Refer to wound assessment report for full details. PES: 1) Altered nutrition related lab values r.t current chronic medical condition aeb elev RFT mod hypoalb hypocalcemia, hyperglycemia 2) Impaired swallowing r.t current medical condition aeb pt`s intubated sedated with order of NPO Comments Will continue to monitor NPO status, skin status, pertinent labs and weight trends. Will f/u in 2-3 days. 1) Consider changing TF to Nepro CS at 40 ml/hr goal rate as tolerated and per MD approval, and 1 pkt prostat BID d/t pt starting HD 2) consider MVI/C bid. 3) advance diet as medically feasible. 4) continue current plan of care
[2019-11-24] VITALS (105 sets, daily range): BP systolic 101–160; BP diastolic 56–107
[2019-11-24] MEDS: MIDAZOLAM DRIP 50 mg/50mL 50 ML IV SCH ×2 (04:12→23:31)
--- NOTE | 2019-11-24 04:50 | NUR ---
CARES FULL BED LINEN CHANGE PATIENT TOLERATED TURNS WELL ABLE TO FOLLOW INSTRUCTION
--- NOTE | 2019-11-24 08:00 | NUR ---
ELIMINATION; Patient had small soft/liquid BM. Partial linen change and skin care provided. Patient restless putting hands up to face attempting to pull at ETT, increased Fentanyl drip to 125 mcg's.
[2019-11-24] MEDS: PANTOPRAZOLE 40 MG/10 ML VIAL INJ IV SCH (10:21)
[2019-11-24] MEDS: AMIODARONE HCL 200 MG TAB GT SCH ×2 (10:21→22:28)
[2019-11-24] MEDS: FUROSEMIDE 100 MG/10ML VIAL IV SCH ×2 (10:21→22:28)
[2019-11-24] MEDS: CARVEDILOL 3.125 MG TAB PO SCH ×2 (10:22→22:29)
[2019-11-24] MEDS: fentaNYL Drip 2500mCg/250mlNS 250 ML IV SCH (10:30)
[2019-11-24] MEDS: DOBUTamine HCL 500 MG in D5W 5% 210 ML IV SCH (10:56)
[2019-11-24] MEDS ORDERED: SODIUM CHL 0.9% 1000 ML BAG XX ONE (12:15)
--- NOTE | 2019-11-24 19:27 | NUR ---
Opening Shift Note Assumed care of patient, awake but drowsy with RASS of -1. Patient able to nod yes when asked name but ignores other questions. Bed is in lowest position and locked. Call light within reach. Board updated. Patient attached to continuous heart monitor, oxygen saturation monitor. BP cuff to right forearm. Osmolite 1.2 madi infusing at 40 mls/hr. Mechanical ventilator settings match MD order. No S/S of distress/SOB or pain. Will continue to monitor for changes Q1hr and PRN.
[2019-11-24] MEDS ORDERED: EPOETIN ALFA 10,000 UNIT/1 ML VIAL SC ONE (21:00)
--- NOTE | 2019-11-24 23:15 | NUR ---
Family called. Update given after confirming password. Addendum: 11/24/19 at 2316 by TORIN GOMEZ RN Wrong patient. Disregard
--- NOTE | 2019-11-24 23:27 | NUR ---
Versed started at 1 mg/hr. Patient is agitated and attempting to reach ET tube. Will continue to assess.
[2019-11-25] VITALS (78 sets, daily range): BP systolic 99–160; BP diastolic 51–88
--- NOTE | 2019-11-25 03:42 | NUR ---
Lab draw taken from right IJ triple lumen catheter.
--- NOTE | 2019-11-25 04:44 | NUR ---
Critical Digoxin level noted in morning lab draw, 2.8. Previous Digoxin level was 3.1. Level is trending down and MD is aware of trending elevated Digoxin. Will endorse to days shift RN.
--- NOTE | 2019-11-25 06:12 | NUR ---
Bed bath with CHG wipes and partial linen changer performed.
[2019-11-25] MEDS: DOBUTamine HCL 500 MG in D5W 5% 210 ML IV SCH (08:27)
[2019-11-25] MEDS: AMIODARONE HCL 200 MG TAB GT SCH ×2 (09:36→22:29)
[2019-11-25] MEDS: FUROSEMIDE 100 MG/10ML VIAL IV SCH ×2 (09:37→22:00)
[2019-11-25] MEDS: PANTOPRAZOLE 40 MG/10 ML VIAL INJ IV SCH (09:37)
[2019-11-25] MEDS: CARVEDILOL 3.125 MG TAB PO SCH ×2 (09:38→22:00)
--- NOTE | 2019-11-25 11:45 | NUR ---
Nutrition Followup Notes Wt: 86.0 kg Pt reintubated and sedated per MD note, receiving HD. Pt with Osmolite 1.2 ordered at 40 ml/hr, pt has received 480 ml of TF 11/24 so far per RN note. Consider changing to Nepro CS 1.8 at 40 ml/hr and 1 packet prostat BID d/t to HD Est Energy needs ABW 65 [id number] kcals (23-25 kcal/kgABW), Est Protein needs: 84-101 gms/day (1-1.2g/kg BW 84kg r/t pt started HD). Will continue to monitor and reassess prn. LABS: Pt with no new labs, labs from 11/22: BUN 51H, Creat 3.9H, GFR 12L, Alb 1.9L, Ca 8.1L GI: Pt had 1 BM on 11/23 per RN doc. BS: 15 mod risk. Refer to wound assessment report for full details. PES: 1) Altered nutrition related lab values r.t current chronic medical condition aeb elev RFT mod hypoalb hypocalcemia, hyperglycemia 2) Impaired swallowing r.t current medical condition aeb pt`s intubated sedated with order of NPO Comments Will continue to monitor NPO status, skin status, pertinent labs and weight trends. Will f/u in 2-3 days. 1) Consider changing TF to Nepro CS at 40 ml/hr goal rate as tolerated and per MD approval, and 1 pkt prostat BID d/t pt starting HD 2) consider MVI/C bid. 3) advance diet as medically feasible. 4) continue current plan of care
--- NOTE | 2019-11-25 12:48 | NUR ---
Patient had a simv done by RT. and patient became tachycardic at 124 at 1100 and patient became restless . Patient did not even last 30 mins. patient returned to ac after the episode. Hr slowly went down. Versed increased to 7 mg to help patient relax. decreased the fentanyl to 15 mcg/kg/hr.
[2019-11-25] MEDS: fentaNYL Drip 2500mCg/250mlNS 250 ML IV SCH (13:20)
[2019-11-25] MEDS: MIDAZOLAM DRIP 50 mg/50mL 50 ML IV SCH (13:41)
--- NOTE | 2019-11-25 17:01 | NUR ---
titrated up patient's versed to 6 mg/hr due to patient spitting her bite block and patient bites her tube whenever suctioning is done. Patient becomes restless and touching her tube. Mittens intact.
--- NOTE | 2019-11-25 17:32 | NUR ---
Patient had more than 6 second pause in the monitor. Dr Argueta was notified and told md what her hx is and he said patient is intubated and no procedure needed at this time.
[2019-11-26] VITALS (73 sets, daily range): BP systolic 99–128; BP diastolic 52–97
[2019-11-26] MEDS: MIDAZOLAM DRIP 50 mg/50mL 50 ML IV SCH ×4 (00:29→21:18)
[2019-11-26] MEDS ORDERED: DOBUTamine 1000MCG/ML 250 ML IV ONE ×2 (00:52→01:10)
[2019-11-26] MEDS: DOBUTamine HCL 500 MG in D5W 5% 210 ML IV SCH (01:14)
[2019-11-26] MEDS: fentaNYL Drip 2500mCg/250mlNS 250 ML IV SCH ×2 (02:33→16:00)
--- NOTE | 2019-11-26 06:56 | NUR ---
No significant events overnight. Pt had 2 very large BM's this morning @0600. Central line dressing on R was changed d/t saturation. No kits available. Pt still on Fentanyl, Dobutamine, and Versed.Vital signs stable.
--- NOTE | 2019-11-26 10:00 | NUR ---
ROUNDS: Patient with what appears to be tube feeding draining from mouth, placement of NGT verified via auscultation and aspiration of gastric contents. 10 mL of residual present, tube feedings placed on hold. Lung sounds remain clear, suction of ETT results in no secretions. HOB elevated to 40 degrees.
[2019-11-26] MEDS: FUROSEMIDE 100 MG/10ML VIAL IV SCH ×2 (10:35→22:17)
[2019-11-26] MEDS: AMIODARONE HCL 200 MG TAB GT SCH ×2 (10:35→22:16)
[2019-11-26] MEDS: PANTOPRAZOLE 40 MG/10 ML VIAL INJ IV SCH (10:35)
[2019-11-26] MEDS: CARVEDILOL 3.125 MG TAB PO SCH ×2 (10:36→22:17)
--- NOTE | 2019-11-26 12:00 | NUR ---
ROUNDS: Tube feeding remains off at this time, no residual when assessed; patient does not have signs of tube feeding present within oral cavity. Will resume tube feedings.
--- NOTE | 2019-11-26 13:45 | NUR ---
FAMILY: Patient's daughter at son at bedside per Dr. Boyle approval.
[2019-11-27] VITALS (72 sets, daily range): BP systolic 83–124; BP diastolic 51–82
[2019-11-27] MEDS: DOBUTamine HCL 500 MG in D5W 5% 210 ML IV SCH ×2 (00:55→18:56)
[2019-11-27] MEDS: MIDAZOLAM DRIP 50 mg/50mL 50 ML IV SCH ×4 (03:59→21:30)
[2019-11-27] MEDS: fentaNYL Drip 2500mCg/250mlNS 250 ML IV SCH ×2 (04:15→18:40)
[2019-11-27 04:49] LABS: BUN/Creatinine Ratio 14.5; Calcium 7.5 mg/dL (8.5-10.1); Potassium 4.3 mmol/L (3.5-5.1)
[2019-11-27 04:52] LABS: Bilirubin, Total 1.9 mg/dL (0.2-1.0); Total Protein 5.1 g/dL (6.4-8.2)
[2019-11-27] MEDS ORDERED: SODIUM CHL 0.9% 1000 ML BAG XX ONE (07:00)
--- NOTE | 2019-11-27 07:20 | NUR ---
Assumed care of pt, report received per GURJIT Edmonds. No distress noted, pt. intub./vented, reading controlled a-fib on monitor, VSS, will cont.to monitor for any changes, assessment ongoing. Addendum: 11/27/19 at 0723 by STEPHANY DUNCAN RN RN Assumed care of pt, report received per GURJIT Edmonds. No distress noted, pt. intub./vented, reading sinus rhythm on monitor, VSS, will cont.to monitor for any changes, assessment ongoing.
[2019-11-27] MEDS: CARVEDILOL 3.125 MG TAB PO SCH ×2 (10:56→21:01)
[2019-11-27] MEDS: AMIODARONE HCL 200 MG TAB GT SCH ×2 (10:56→21:00)
[2019-11-27] MEDS: PANTOPRAZOLE 40 MG/10 ML VIAL INJ IV SCH (10:56)
[2019-11-27] MEDS: FUROSEMIDE 100 MG/10ML VIAL IV SCH ×2 (10:58→21:01)
--- NOTE | 2019-11-27 11:30 | NUR ---
WOUND CARE NOTE: Wound care in to see patient for skin integrity monitoring. Patient continue resting in ICU bed in Rm. 112. Patient is still intubated, sedated and mechanically ventilated. Patient appears to be in no pain using [place] Faces Pain Scale. Her Jaime score is 12. Skin assessment done with the assistance of patient's nurse,GURJIT Gallegos. Patient's perineum, buttocks, medial and posterior thighs continue to display moisture associated skin damage. MASD looks improving in comparison to last wound care visit. Avani care given, new photograph taken for reference, care pad changed. Repositioned patient for comfort on her back, redistributed pressure points with pillows. Patient tolerated well. RECOMMENDATION: Continuation of all wound care orders prescribed by MD, continue with skin/wound preventative plan of care, continue monitoring by wound care while patient is intubated and Jaime score is <18. Addendum: 11/27/19 at 1244 by Holley Swenson RN Amended: Links added.
--- NOTE | 2019-11-27 12:41 | NUR ---
1000-No distress noted, pt. awaiting dialysis, VSS< will cont.to monitor for any changes, assessment ongoing.
--- NOTE | 2019-11-27 12:42 | NUR ---
1200-No changes noted, construction craft laborer present and setting up, VSS, will cont.to monitor for any changes, assessment ongoing.
[2019-11-27] MEDS: ALBUMIN 25% 100 ML IV SCH ×2 (13:00→14:00)
--- NOTE | 2019-11-27 13:05 | NUR ---
Nutrition Followup Notes Wt: 83.0 kg Pt intubated and sedated, receiving HD today. Pt with Osmolite 1.2 at 40 ml/hr, tolerating well per RN note. Consider changing to Nepro CS 1.8 at 40 ml/hr and 1 packet prostat BID d/t pt with HD. Will continue to monitor PO status, skin status, pertinent labs and weight trends. Will f/u in 2-3 days Est Energy needs ABW 65 [id number] kcals (23-25 kcal/kgABW), Est Protein needs: 84-101 gms/day (1-1.2g/kg BW 84kg r/t pt started HD). Will continue to monitor and reassess prn. LABS: BUN 61H, Creat 4.2H, GFR 11L, Alb 2.0L, Ca 7.5L GI: Pt is incontinent per RN doc. BS: 13 mod risk. Refer to wound assessment report for full details. PES: 1) Altered nutrition related lab values r.t current chronic medical condition aeb elev RFT mod hypoalb hypocalcemia, hyperglycemia 2) Impaired swallowing r.t current medical condition aeb pt`s intubated sedated with order of NPO Comments Will continue to monitor NPO status, skin status, pertinent labs and weight trends. Will f/u in 2-3 days. 1) Consider changing TF to Nepro CS at 40 ml/hr goal rate as tolerated and per MD approval, and 1 pkt prostat BID d/t pt starting HD 2) consider MVI/C bid. 3) advance diet as medically feasible. 4) continue current plan of care
--- NOTE | 2019-11-27 19:29 | NUR ---
No distress noted, pt. report given GURJIT Arechiga. Care of pt. assumed per night RN, day shift RN relinquished care and signed off.
[2019-11-27] MEDS ORDERED: EPOETIN ALFA 10,000 UNIT/1 ML VIAL SC ONE (21:00)
[2019-11-28] VITALS (79 sets, daily range): BP systolic 83–116; BP diastolic 47–76
[2019-11-28 04:32] LABS: Hematocrit 26.4 % (36.0-46.0); Hemoglobin 8.6 g/dL (12.2-16.2); Mean Corpuscular Hemoglobin 28.7 pg (28.0-32.0); Mean Corpuscular Hgb Conc. 32.4 g/dL (32.0-36.0); Mean Corpuscular Volume 88.8 fL (80.0-100.0); Platelet Count (auto) 121 10^3/uL (140-450); Red Blood Cells 2.98 10^6/uL (4.0-5.20); White Blood Cell 10.8 10^3/uL (4.4-10.8)
[2019-11-28 04:50] LABS: Albumin 2.8 g/dL (3.4-5.0); Calcium 7.8 mg/dL (8.5-10.1); Potassium 4.3 mmol/L (3.5-5.1)
[2019-11-28 04:56] LABS: BUN/Creatinine Ratio 13.1; Bilirubin, Total 2.1 mg/dL (0.2-1.0); Total Protein 5.6 g/dL (6.4-8.2)
[2019-11-28 05:05] LABS: Basophils % (manual) 0 (0.0-2.0); Blast Cells 0; Metamyelocytes % 0; Myelocytes % 0; Promyelocytes % 0; Reactive Lymphocytes 0
[2019-11-28 05:13] LABS: INR 1.12 (0.9-1.15); Partial Thromboplastin Time 27.4 sec (23.0-31.2)
[2019-11-28 05:39] LABS: Band Neutrophils % (manual) 2; Eosinophils % (manual) 3 (0-7); Lymphocytes % (manual) 8 (10.0-50.0); Monocytes % (manual) 3 (0-12)
[2019-11-28] MEDS: fentaNYL Drip 2500mCg/250mlNS 250 ML IV SCH (05:47)
[2019-11-28] MEDS: MIDAZOLAM DRIP 50 mg/50mL 50 ML IV SCH ×4 (05:48→23:30)
--- NOTE | 2019-11-28 08:00 | NUR ---
Opening Shift Note Assumed care of patient, intubated, eyes open. No S/S of distress/SOB or pain. Tube feeding clamped, patient scheduled for heart cath today. See interventions for complete assessment. Bed locked on low position, side rails up x2, bed alarms on at all times, will continue to monitor for changes Q1hr and PRN.
[2019-11-28] MEDS: PANTOPRAZOLE 40 MG/10 ML VIAL INJ IV SCH (09:26)
--- NOTE | 2019-11-28 09:26 | NUR ---
Dr Lynn at bedside, updated on patient's status. Patient seen and examined. Received verbal order to hold off Coreg and Amiodarone. Orders read back and verified. Will carry out.
[2019-11-28] MEDS: CARVEDILOL 3.125 MG TAB PO SCH ×2 (09:28→22:00)
[2019-11-28] MEDS: AMIODARONE HCL 200 MG TAB GT SCH ×2 (09:28→22:22)
[2019-11-28] MEDS: FUROSEMIDE 100 MG/10ML VIAL IV SCH ×2 (09:29→22:00)
--- NOTE | 2019-11-28 09:51 | NUR ---
Received call from patient's Jaron who's able to provide password. Updated on patient's status and POC, verbalized understanding. All questions and concerns addressed.
--- NOTE | 2019-11-28 12:15 | NUR ---
Patient had moderate amount of pasty brown bowel movement, given perineal care. Skin integrity assessed for any changes. Z-guard applied on perineal area. Linens changed. Patient repositioned for comfort.
[2019-11-28] MEDS ORDERED: SODIUM CHL 0.9% 50 ML ONE ×2 (13:11→15:09)
[2019-11-28] MEDS ORDERED: ANGIOMAX 250 MG VIAL IV ONE ×2 (13:11→15:09)
[2019-11-28] MEDS ORDERED: VERAPAMIL 2.5MG/ML INJ 2ML VIAL IV ONE (13:12)
[2019-11-28] MEDS ORDERED: HEPARIN SODIUM (PORCINE) 5000 UNITS/ML 1ML VIAL ONE (13:12)
--- NOTE | 2019-11-28 13:20 | NUR ---
PT TRANSPORTED TO PHYSICS PROFESSOR FOR PROCEDURE WITH 3 RN'S AT BEDSIDE WITHOUT INCIDENT. PT PLACED ON VENT ON PREVIOUS SETTINGS. PT TOLERATED TRANSPORT WELL. WILL CONTINUE TO MONITOR PT.
--- NOTE | 2019-11-28 13:21 | NUR ---
Patient out of room to cathlab.
--- NOTE | 2019-11-28 13:29 | NUR ---
PT TO ENROLLMENT CLERK WITH 3 RNS AND RT WITHOUT INCIDENT ON MONITOR. SEE MAC LAB
--- NOTE | 2019-11-28 14:00 | NUR ---
Respiratory note: PT IN THRESHING DEPARTMENT SUPERVISOR FOR PROCEDURE ON VENT V-22 PLUGGED INTO RED OUTLET. ALL VENT ALARMS ARE AUDIBLE, AND FUNCTIONING. AMBU BAG/MASK IS AT BEDSIDE CONNECTED TO AN O2 TANK. PT PLACED ON PREVIOUS SETTINGS OF AC 14, VT 500, PEEP +5, FIO2 45%. PT TOLERATING PROCEDURE WELL. DR MENDES, AND RN AT BEDSIDE. WILL CONTINUE TO MONITOR PT.
[2019-11-28] MEDS ORDERED: DOBUTamine 1000MCG/ML 250 ML IV ONE (14:33)
[2019-11-28] MEDS ORDERED: IODIXANOL 320MG/ML 100ML BTL IV ONE ×2 (15:09→17:13)
[2019-11-28] MEDS: DOBUTamine HCL 500 MG in D5W 5% 210 ML IV SCH (17:23)
[2019-11-28] MEDS ORDERED: NOREPINEPHRINE 8 MG/250ML KIT 250 ML IV ONE (17:51)
--- NOTE | 2019-11-28 18:22 | NUR ---
REPORT CALLED TO ICU. PT TO BE TRANSPORTED TO ICU BED 112.
[2019-11-28] MEDS ORDERED: CLOPIDOGREL 300 MG TAB ONE (18:47)
[2019-11-28] MEDS ORDERED: ASPirin 325 MG TAB ONE (18:48)
--- NOTE | 2019-11-28 19:00 | NUR ---
Patient received on Levophed at 5mcg/min. BP 101/63.
--- NOTE | 2019-11-28 19:05 | NUR ---
Dr Lynn at bedside, updated on patient's status. Patient seen and examined. Will carry out new orders.
--- NOTE | 2019-11-28 19:10 | NUR ---
Received patient from Duct Layer Supervisor @ 1900 via hospital bed on certified peer specialist, intubated and sedated s/p Heart Cath and transvenous pacer placement. Patient connected to unit monitoring. RT and LT groin dressing dry and intact, transvenous pacer on RT groin. Bed locked on low psoition, side rails up x2, bed alarms on at all times. Gave report to Ramírez CAGLE.
--- NOTE | 2019-11-28 19:30 | NUR ---
REPORT RECEIVED, ASSUMED CARE. PT HAS ARTERIAL SHEATH TO RT GROIN, UNABLE TO BEND PT AT HIPS.
--- NOTE | 2019-11-28 19:45 | NUR ---
HELD FEEDINGS DUE TO HIGH RISK FOR ASPIRATION DUE TO HOB BEING LOW, CAN'T BEND PT AT HIPS. DID PLACE BED IN [place].
[2019-11-29] VITALS (100 sets, daily range): BP systolic 86–116; BP diastolic 53–80
--- NOTE | 2019-11-29 | NUR ---
PLACED ICE PACK ON PT.
--- NOTE | 2019-11-29 02:00 | NUR ---
REPORT AND CARE GIVEN TO ORYL CAGLE.
--- NOTE | 2019-11-29 02:15 | NUR ---
REPORT RECEIVED FROM TELECOMMUNICATION TOWER TECHNICIAN RN ASSUMED CARE OF PATIENT. PATIENT INTUBATED AND SEDATED WITH NO SIGNS OR SYMPTOMS OF SOB, PAIN OR DISTRESS. TRANSCUTANEOUS PACING IN PLACE. RIGHT INTERNAL JUGULAR TLC AND LEFT [place]ERVA INTERNAL JUGULAR CATHETER - CLEAN/DRY/INTACT. RIGHT AND LEFT GROIN STATUS POST HEART CATH - CLEAN/DRY/INTACT WITH NO SIGNS OF HEMATOMA. RIGHT GROIN ARTERIAL SHEATH INTACT, UNABLE TO BEND HIP. COLON HUNG TO GRAVITY. SEDATION: VERSED - 15MG/HR FENTANYL - 200MCG/HR VASOPRESSORS: LEVOPHED - 4MCG/MIN DOBUTAMINE - 5MCG/KG/MIN SET RATE BED IN LOWEST POSITION, SIDE RAILS UP X2. WILL CONTINUE TO MONITOR.
[2019-11-29] MEDS: DOBUTamine HCL 500 MG in D5W 5% 210 ML IV SCH (03:29)
[2019-11-29] MEDS: MIDAZOLAM DRIP 50 mg/50mL 50 ML IV SCH ×4 (04:00→22:16)
--- NOTE | 2019-11-29 04:15 | NUR ---
CENTRAL LINE DRESSING CHANGED
[2019-11-29 05:42] LABS: Potassium 4.4 mmol/L (3.5-5.1)
[2019-11-29 05:48] LABS: Albumin 2.5 g/dL (3.4-5.0); BUN/Creatinine Ratio 13.5; Bilirubin, Total 2.8 mg/dL (0.2-1.0); Total Protein 5.4 g/dL (6.4-8.2)
--- NOTE | 2019-11-29 07:25 | NUR ---
END OF SHIFT REPORT GIVEN TO DAY SHIFT RN. CARE ENDORSED.
--- NOTE | 2019-11-29 07:25 | NUR ---
REPORT RECEIVED FROM ENGINEERING DESIGN MANAGER RN
--- NOTE | 2019-11-29 07:41 | NUR ---
DIALYSIS NURSE AT BEDSIDE
--- NOTE | 2019-11-29 08:09 | NUR ---
DR. MENDES PAGED AWAITING CALLBACK
[2019-11-29] MEDS ORDERED: SODIUM CHL 0.9% 1000 ML BAG XX ONE (08:15)
--- NOTE | 2019-11-29 08:17 | NUR ---
DR. MENDES CALLBACK ORDERS RECEIVED
--- NOTE | 2019-11-29 09:00 | NUR ---
SEDATION VACATION HELD AT THIS TIME DUE TO HEMODYNAMIC INSTABILITY Addendum: 11/29/19 at 1015 by Felice Lowry RN Amended: Links added.
[2019-11-29] MEDS ORDERED: CLOPIDOGREL BISULFATE 75 MG TAB PO SCH (10:00)
[2019-11-29] MEDS: CARVEDILOL 3.125 MG TAB PO SCH ×2 (10:00→22:00)
[2019-11-29] MEDS: FUROSEMIDE 100 MG/10ML VIAL IV SCH ×2 (10:03→22:17)
[2019-11-29] MEDS: PANTOPRAZOLE 40 MG/10 ML VIAL INJ IV SCH (10:03)
[2019-11-29] MEDS: AMIODARONE HCL 200 MG TAB GT SCH ×2 (10:03→22:17)
[2019-11-29] MEDS: ASPirin 81 mg TAB PO SCH (10:04)
[2019-11-29] MEDS: NOREPINEPHRINE 8 MG/250ML KIT 250 ML IV SCH (10:09)
--- NOTE | 2019-11-29 10:32 | NUR ---
UPDATED ON PATIENT STATUS
--- NOTE | 2019-11-29 11:02 | NUR ---
DIALYSIS COMPLETE 2 LITERS REMOVED
--- NOTE | 2019-11-29 11:17 | NUR ---
DR. MENDES AT BEDSIDE
--- NOTE | 2019-11-29 12:48 | NUR ---
Nutrition Followup Notes Wt: 83.4 kg Pt intubated and sedated, receiving HD today. pt`s currently NPO off EN support due to high risk of aspiratin per RN. Est Energy needs ABW 65 [id number] kcals (23-25 kcal/kgABW), Est Protein needs: 84-101 gms/day (1-1.2g/kg BW 84kg r/t pt started HD). Will continue to monitor and reassess prn. LABS: ALB 2.5 L, BUN 51 H CREAT 3.77 H SIL 2.8 L GI: Pt is incontinent per RN doc. BS: 12 high risk. Refer to wound assessment report for full details. PES: 1) Altered nutrition related lab values r.t current chronic medical condition aeb elev RFT mod hypoalb hypocalcemia, hyperglycemia 2) Impaired swallowing r.t current medical condition aeb pt`s intubated sedated with order of NPO Comments Will continue to monitor NPO status, skin status, pertinent labs and weight trends. Will f/u in 2-3 days. 1) Consider changing TF to Nepro CS at 40 ml/hr goal rate as tolerated and per MD approval, and 1 pkt prostat BID d/t pt starting HD. 2) consider MVI/C bid. 3) advance diet as medically feasible. 4) continue current plan of care
--- NOTE | 2019-11-29 12:56 | NUR ---
SON UPDATED ON PATIENT STATUS
[2019-11-29] MEDS ORDERED: ATROPINE SULF 1 MG/10ml SYR IV ONE (14:39)
[2019-11-29] MEDS: fentaNYL Drip 2500mCg/250mlNS 250 ML IV SCH ×2 (15:09→23:06)
--- NOTE | 2019-11-29 16:18 | NUR ---
CPAP ATTEMPTED TO PLACE PATIENT ON CPAP TRIAL IN AN ATTEMPT TO EXTUBATE PATIENT. WITH SEDATION TITRATED DOWNWARD, PATIENT NOT FOLLOWING COMMANDS BUT TURNING HEAD SIDE TO SIDE, HR INTO 130'S WITH INCREASED WORK OF BREATHING. DR. AQUINO NOTIFIED OF PATIENT STATUS. SEDATION INCREASED FOR SAFETY AND COMFORT
[2019-11-29] MEDS: HEPARIN DRIP/D5W 100UNITS/ML 250 ML IV SCH (17:01)
[2019-11-29 17:58] LABS: Hemoglobin 8.2 g/dL (12.2-16.2)
[2019-11-29 17:59] LABS: Hematocrit 26.2 % (36.0-46.0); Mean Corpuscular Hemoglobin 28.1 pg (28.0-32.0); Mean Corpuscular Hgb Conc. 31.5 g/dL (32.0-36.0); Platelet Count (auto) 197 10^3/uL (140-450); Red Blood Cells 2.94 10^6/uL (4.0-5.20); Red Cell Distribution Width 19.9 % (11.8-14.3); White Blood Cell 13.1 10^3/uL (4.4-10.8)
[2019-11-29 18:15] LABS: INR 1.18 (0.9-1.15); Partial Thromboplastin Time 34.1 sec (23.0-31.2)
[2019-11-29 18:19] LABS: Basophils % (manual) 0 (0.0-2.0); Blast Cells 0; Eosinophils % (manual) 0 (0-7); Myelocytes % 0; Promyelocytes % 0; Reactive Lymphocytes 0
[2019-11-29 19:32] LABS: Band Neutrophils % (manual) 5; Lymphocytes % (manual) 2 (10.0-50.0); Metamyelocytes % 4; Monocytes % (manual) 3 (0-12)
--- NOTE | 2019-11-29 19:45 | NUR ---
OPEN NOTES RECEIVED PATIENT SEDATED AND INTUBATED. AFEBRILE. PATIENT IS MOVING HANDS UP. MITTENS PLACED ON BOTH HANDS, ECG SINUS TACHYCARDIA, BP 90-100 MMHG SYSTOLIC. ONGOING IV LEVOPHED AND DOBUTAMINE DRIP.WITH TRANSVENOUS PACER AT RIGHT FEMORAL.RATE SET AT 55, OUTPUT 5MA,SENSITIVITY 0.5 FULL ASSESSMENT DONE -REFER INTERVENTION ORAL CARE DONE. WILL CONTINUE TO MONITOR
[2019-11-29] MEDS ORDERED: EPOETIN ALFA 10,000 UNIT/1 ML VIAL SC ONE (21:00)
--- NOTE | 2019-11-29 21:00 | NUR ---
SEDATION VACATION HELD TO KEEP PATIENT COMFORTABLE NEEDED TO INCREASE SEDATION PATIENT IS BITING ETT, NOTED BRIE
[2019-11-29] MEDS: ATORVASTATIN 20 MG TAB PO SCH (22:16)
--- NOTE | 2019-11-29 22:30 | NUR ---
ELIMINATION PATIENT HAD MODERATE AMOUNT LOOSE BROWNISH STOOL CLEANED.SPONGE BATH DONE. LINENS CHANGED. REPOSITIONED
[2019-11-29 22:37] LABS: INR 1.25 (0.9-1.15); Partial Thromboplastin Time 61.8 sec (23.0-31.2)
--- NOTE | 2019-11-29 23:07 | NUR ---
PTT 61.8 SECS PER PROTOCOL, NO BOLUS NO CHANGE KEPT AT 1000UNIT/HR
[2019-11-30] VITALS (101 sets, daily range): BP systolic 84–123; BP diastolic 54–83
[2019-11-30] MEDS: DOBUTamine HCL 500 MG in D5W 5% 210 ML IV SCH (01:07)
--- NOTE | 2019-11-30 01:46 | NUR ---
ELIMINATION PATIENT HAD A SMALL AMOUNT LOOSE BROWNISH STOOL CLEANED. CHUX CHANGED APPLIED Z GUARD ON PERIANAL AREA
[2019-11-30 04:20] LABS: Basophils # (auto) 0.2 10 ^3/uL (0-0.2); Eosinophils # (auto) 0.4 10 ^3/uL (0-0.8); Monocytes # (auto) 0.7 10 ^3/uL (0-1.3); Nucleated Red Blood Cells % 0.2 %
[2019-11-30 04:23] LABS: Basophils % (auto) 1.4 % (0.0-2.0); Eosinophils % (auto) 3.3 % (0.0-7.0); Hematocrit 24.6 % (36.0-46.0); Lymphocytes # (auto) 0.8 10 ^3/uL (0.4-5.4); Lymphocytes % (auto) 6.3 % (10.0-50.0); Mean Corpuscular Hemoglobin 29.1 pg (28.0-32.0); Mean Corpuscular Hgb Conc. 32.7 g/dL (32.0-36.0); Monocytes % (auto) 5.5 % (0.0-12.0); Neutrophils # (auto) 10.7 10 ^3/uL (1.6-8.6); Neutrophils % (auto) 83.5 % (37.0-80.0); Platelet Count (auto) 207 10^3/uL (140-450); Red Blood Cells 2.76 10^6/uL (4.0-5.20); Red Cell Distribution Width 19.2 % (11.8-14.3); White Blood Cell 12.9 10^3/uL (4.4-10.8)
[2019-11-30 04:38] LABS: INR 1.21 (0.9-1.15); Partial Thromboplastin Time 34.3 sec (23.0-31.2)
[2019-11-30 04:42] LABS: Calcium 7.8 mg/dL (8.5-10.1); Potassium 4.1 mmol/L (3.5-5.1)
[2019-11-30 04:46] LABS: Albumin 2.3 g/dL (3.4-5.0); BUN/Creatinine Ratio 12.4
[2019-11-30 04:49] LABS: Bilirubin, Total 2.2 mg/dL (0.2-1.0); Total Protein 5.4 g/dL (6.4-8.2)
--- NOTE | 2019-11-30 05:08 | NUR ---
PTT 34.3 SECS WILL GIVE IV HEPARIN BOLUS PER PROTOCOL AND INCREASED RATE TO 1300 UNITS/HR
[2019-11-30] MEDS ORDERED: HEPARIN SODIUM (PORCINE) 5000 UNITS/ML 1ML VIAL IV ONE (05:15)
--- NOTE | 2019-11-30 06:00 | NUR ---
TUBE FEEDING BOTTLE NEEDS TO BE CHANGED NO NEW BOTTLE AVAILABLE WILL ASK DIETARY FOR NEW SUPPLY
--- NOTE | 2019-11-30 07:15 | NUR ---
START OF SHIFT RECEIVED PATIENT ORALLY INTUBATED AND ON VENTILATOR SUPPORT, RELAXED WITH FENTANYL AND VERSED DRIPS HOWEVER WILL MOVE ARMS WITH TOUCH AND VERBAL STIMULI, ATTEMPTS TO BITE TUBE WITH ORAL SUCTION INITIALLY, RELAXED AND ALLOWS NURSE TO CLEAN MOUTH AFTER EXPLANATION. LUNG SOUNDS CLEAR, ABDOMEN SOFT WITH BOWEL SOUNDS, NASOGASTRIC TUBE INTACT AND PATENT, MINIMAL URINE OUTPUT NOTED 5 ML ONLY.
[2019-11-30] MEDS: MIDAZOLAM DRIP 50 mg/50mL 50 ML IV SCH ×3 (07:33→22:49)
[2019-11-30] MEDS: ASPirin 81 mg TAB PO SCH (09:08)
[2019-11-30] MEDS: AMIODARONE HCL 200 MG TAB GT SCH ×2 (09:09→22:48)
[2019-11-30] MEDS: PANTOPRAZOLE 40 MG/10 ML VIAL INJ IV SCH (09:09)
[2019-11-30] MEDS: FUROSEMIDE 100 MG/10ML VIAL IV SCH ×2 (09:09→22:15)
[2019-11-30] MEDS: CARVEDILOL 3.125 MG TAB PO SCH ×2 (09:11→22:15)
--- NOTE | 2019-11-30 11:00 | NUR ---
RN COMMUNICATION CALL FROM SURGEON DR. FAUST AND PATIENT FOR TRACHEOSTOMY TUESDAY, PATIENT'S TARYN CONTACTED AND GAVE CONSENT FOR TRACHEOSTOMY, TOLD THIS RN DOCTORS HAVE EXPLAINED THE PROCEDURE TO HIM AND HE AGREES.
--- NOTE | 2019-11-30 11:40 | NUR ---
re-assessment Per Tere in admitting patient has a [phone] share of cost with [facility]. Patient is now [facility] eligible. Addendum: 11/30/19 at 1142 by Carla MONTOYA Amended: Links added.
--- NOTE | 2019-11-30 13:00 | NUR ---
RN COMMUNICATION LINE DRAW REPEAT PTT RESULTED HIGH (139); REORDERED TEST WITH LAB TO DRAW FOR CONFIRMATION.
[2019-11-30] MEDS: NOREPINEPHRINE 8 MG/250ML KIT 250 ML IV SCH (14:55)
[2019-11-30 16:00] LABS: INR 1.18 (0.9-1.15); Partial Thromboplastin Time 45.3 sec (23.0-31.2)
--- NOTE | 2019-11-30 17:45 | NUR ---
SHIFT SUMMARY PATIENT REMAINS INTUBATED AND ON VENTILATOR SUPPORT, KEPT CLAM WITH VERSED DRIP AT 6MG/HOUR AND FENTANYL DRIP AT 125MG/HOUR, SYSTOLIC BLOOD PRESSURE MAINTAINED ABOVE 100 WITH LEVOPHED DRIP AT 8MCG/MINUTE, PATIENT FLEXES BOTH ARMS BU NOT PURPOSEFUL, MITTENS ON TO KEEP PATIENT FROM TOUCHING ENDOTRACHEAL TUBE, HEPARIN DRIP ADJUSTED PER PROTOCOL, REDNESS AT BOTH GROIN AND BUTTOCKS NOTED, ZGARD APPLIED TO PROTECT SKIN. BM SMEAR NOTED AND CLEANSED. RIGHT FEMORAL SHEATH WITH TEMPORARY PACEMAKER INTACT, SETTINGS SAME AND WILL BE KEPT TILL PATIENT HAD TRACHEOSTOMY SCHEDULED TUESDAY, AWARE AND GAVE CONSENT.
--- NOTE | 2019-11-30 18:48 | NUR ---
Respiratory note: RECEIVED PT ON VENT V8,VENT CONNECTED TO RED OUTLET AND O2 SOURCE ALARMS ARE SET AND AUDIBLE. AMBU BAG AND MASK AT BEDSIDE, BS ARE COURSE T/O SXD VIA ETT FOR COPIOUS AMOUNT OF THICK BROWN/JOSHI/BLOODY TINGE SECRETIONS.NO VENT CHANGES MADE WILL CONTINUE TO MONITOR
--- NOTE | 2019-11-30 19:30 | NUR ---
OPENING NOTE RECEIVED REPORT FROM JIAN RN AND ASSUMED CARE OF PT. MECHANICAL VENTILATOR IN PLACE. VSS WITH NO DISTRESS NOTED. SEE IV SPREADSHEET FOR GTTS AND INTERVENTIONS FOR PHYSICAL ASSESSMENT. TRANSVENOUS PACEMAKER SITE ASSESSED- NO S/S OF BLEEDING OR HEMATOMA AND POSITIVE PULSES TO ALL EXTREMITIES. COLON CATHETER IN PLACE AND DRAINING APPROPRIATELY. SIDE RAILS UP AND BED IN LOWEST POSITION FOR SAFETY. WILL CONTINUE TO MONITOR AND ASSESS PT.
--- NOTE | 2019-11-30 20:33 | NUR ---
Respiratory note: AT BEDSIDE FOR ROUTINE VENT CHECK. HEPA FILTER CHANGED AT THIS TIME WITHOUT INCIDENT. NO OTHER CHANGES MADE WILL CONTINUE TO MONITOR.
--- NOTE | 2019-11-30 22:18 | NUR ---
TUBE FEEDING ASSESSMENT PT TOLERATING OSMOLITE 40 ML/HR WELL WITH < 20 ML OF RESIDUALS NOTED. TF CONTINUED AT 40 ML/HR. WILL CONTINUE TO ASSESS PT TOLERANCE.
--- NOTE | 2019-11-30 22:45 | NUR ---
Respiratory note: AT BEDSIDE FOR ROUTINE VENT CHECK. BS ARE COURSE T/O, SXD FOR LARGE AMOUNT OF THICK BROWN/JOSHI/ BLOOD TINGE SECRETIONS. NO VENT CHANGES MADE WILL CONTINUE TO MONITOR.
[2019-11-30] MEDS: ATORVASTATIN 20 MG TAB PO SCH (22:49)
[2019-11-30 23:08] LABS: INR 1.24 (0.9-1.15); Partial Thromboplastin Time 46.7 sec (23.0-31.2)
[2019-11-30] MEDS: HEPARIN DRIP/D5W 100UNITS/ML 250 ML IV SCH (23:18)
[2019-12-01] VITALS (46 sets, daily range): BP systolic 83–107; BP diastolic 50–71
--- NOTE | 2019-12-01 00:42 | NUR ---
Respiratory note: AT BEDSIDE FOR ROUTINE VENT CHECK. NO VENT CHANGES MADE WILL CONTINUE TO MONITOR.
--- NOTE | 2019-12-01 02:50 | NUR ---
Respiratory note: AT BEDSIDE FOR ROUTINE VENT CHECK. NO VENT CHANGES MADE WILL CONTINUE TO MONITOR.
[2019-12-01 04:24] LABS: Eosinophils # (auto) 0.4 10 ^3/uL (0-0.8); Eosinophils % (auto) 3.4 % (0.0-7.0); Hemoglobin 7.7 g/dL (12.2-16.2); Lymphocytes # (auto) 0.8 10 ^3/uL (0.4-5.4); Mean Corpuscular Hemoglobin 28.6 pg (28.0-32.0); Monocytes # (auto) 0.7 10 ^3/uL (0-1.3)
[2019-12-01 04:26] LABS: Basophils # (auto) 0.1 10 ^3/uL (0-0.2); Basophils % (auto) 1.1 % (0.0-2.0); Hematocrit 24.4 % (36.0-46.0); Lymphocytes % (auto) 6.1 % (10.0-50.0); Mean Corpuscular Hgb Conc. 31.7 g/dL (32.0-36.0); Mean Corpuscular Volume 90.1 fL (80.0-100.0); Neutrophils # (auto) 10.3 10 ^3/uL (1.6-8.6); Neutrophils % (auto) 83.4 % (37.0-80.0); Nucleated Red Blood Cells % 0.6 %; Platelet Count (auto) 241 10^3/uL (140-450); White Blood Cell 12.4 10^3/uL (4.4-10.8)
[2019-12-01 04:38] LABS: Albumin 2.3 g/dL (3.4-5.0); Calcium 7.7 mg/dL (8.5-10.1); Potassium 4.3 mmol/L (3.5-5.1)
[2019-12-01 04:42] LABS: BUN/Creatinine Ratio 11.8; Bilirubin, Total 2.2 mg/dL (0.2-1.0); Red Cell Distribution Width 20.2 % (11.8-14.3); Total Protein 5.5 g/dL (6.4-8.2)
[2019-12-01] MEDS: NOREPINEPHRINE 8 MG/250ML KIT 250 ML IV SCH (04:58)
[2019-12-01 05:18] LABS: INR 1.25 (0.9-1.15)
[2019-12-01 05:19] LABS: Partial Thromboplastin Time 121.4 sec (23.0-31.2)
--- NOTE | 2019-12-01 05:25 | NUR ---
CALLED LAB TO REQUEST REDRAW FOR PTS MORNING PTT IT WAS SIGNIFICANTLY HIGHER THAN PTS TRENDING VALUES. AWAITING TECH TO COME AND DRAW PT.
[2019-12-01 06:36] LABS: INR 1.24 (0.9-1.15)
[2019-12-01 06:37] LABS: Partial Thromboplastin Time > 139.0 sec (23.0-31.2)
--- NOTE | 2019-12-01 06:38 | NUR ---
RECEIVED RESULTS FROM APTT REDRAW- CRITICAL AT >139. HEPARIN GTT HELD PER PROTOCOL. NO S/S OF BLEEDING PRESENT AT THIS TIME.
--- NOTE | 2019-12-01 06:57 | NUR ---
REPORT GIVEN TO JIAN CAGLE. MADE HER AWARE OF HEPARIN BEING HELD PER PROTOCOL.
--- NOTE | 2019-12-01 07:00 | NUR ---
START OF SHIFT RECEIVED PATIENT ORALLY INTUBATED AND ON VENTILATOR SUPPORT, SEDATED WITH FENTANYL AND VERSED , AROUSES EASILY TO TOUCH AND VERBAL STIMULI, ORAL CARE WITH SLIGHT BLEEDING FROM ORAL SORES, COLON INTACT WITH SMALL AMOUNT URINE OUTPUT, TUBE FEEDING AT GOAL RATE OF 40ML/HOUR AND TOLERATING WITH MINIMAL RESIDUAL, ABDOMEN SOFT WITH ACTIVE BOWEL SOUNDS.
[2019-12-01] MEDS: MIDAZOLAM DRIP 50 mg/50mL 50 ML IV SCH (07:45)
[2019-12-01] MEDS: PANTOPRAZOLE 40 MG/10 ML VIAL INJ IV SCH (09:12)
[2019-12-01] MEDS: ASPirin 81 mg TAB PO SCH (09:12)
[2019-12-01] MEDS: CARVEDILOL 3.125 MG TAB PO SCH (09:13)
[2019-12-01] MEDS: AMIODARONE HCL 200 MG TAB GT SCH (09:13)
[2019-12-01] MEDS: HEPARIN DRIP/D5W 100UNITS/ML 250 ML IV SCH (09:24)
[2019-12-01] MEDS: FUROSEMIDE 100 MG/10ML VIAL IV SCH (10:27)
--- NOTE | 2019-12-01 10:43 | NUR ---
RN NOTES OTHER GLOBAL COMPENSATION DIRECTOR NOTED PACER SPIKES ON MANAGING PRINCIPAL, NO PULSE, CODE CALLED AND CPR STARTED WITH ACLS DRUGS GIVEN PER ACLS STANDARD, SEE CODE BLUE CHARTING.
[2019-12-01] MEDS ORDERED: PHYTONADIONE (VIT K)10 MG/ML 1ML VIAL SUBCUT ONE (10:45)
--- NOTE | 2019-12-01 10:50 | NUR ---
RN COMMUNICATION, PATIENT'S CALLED AND MADE AWARE OF PATIENT'S HEART STOPPING AND RESUSCITATION IN PROGRESS, DR. FRANK IN ATTENDANCE OF MARYANN.
--- NOTE | 2019-12-01 11:15 | NUR ---
RN NOTES NO RESPONSE TO ACLS MEDICATIONS AND CPR RESUSCITATION, DR. CARLSON IN ATTENDANCE AND CALLED OFF RESUSCITATION, PATIENT'S CALLED BY DR. CARLSON.
--- NOTE | 2019-12-01 13:05 | NUR ---
POST MORTEM CARE BODY RELEASED BY REVOLVING INVENTORY CLERK, ALL TUBES REMOVED AND AREAS WASHED WITH WET CLOTH. PATIENT'S CALLED AND WILL BE ON THE WAY TO THE HOSPITAL.
--- NOTE | 2019-12-01 13:43 | NUR ---
Nutrition Followup Notes Wt: 85.3 kg Pt intubated and sedated, with no relatives at bedside when rounded this morning. Pt`s currently NPO with EN support Osmolite @ 40 ml/hr, tolerating it well per RN doc. Will continue to monitor PO status, skin status, pertinent labs and weight trends. Will f/u in 2-3 days. Est Energy needs ABW 65 [id number] kcals (23-25 kcal/kgABW), Est Protein needs: 84-101 gms/day (1-1.2g/kg BW 84kg r/t pt started HD). Will continue to monitor and reassess prn. LABS: ALB 2.3 L, BUN 43 H CREAT 3.65 H Gluc 143 H GI: Pt had 1 BM noted on 11/29 per RN doc. BS: 12 high risk. Refer to wound assessment report for full details. PES: 1) Altered nutrition related lab values r.t current chronic medical condition aeb elev RFT mod hypoalb hypocalcemia, hyperglycemia 2) Impaired swallowing r.t current medical condition aeb pt`s intubated sedated with order of NPO Comments Will continue to monitor NPO status, skin status, pertinent labs and weight trends. Will f/u in 2-3 days. 1) Consider changing TF to Nepro CS at 40 ml/hr goal rate as tolerated and per MD approval, and 1 pkt prostat BID d/t pt starting HD. 2) consider MVI/C bid. 3) advance diet as medically feasible. 4) continue current plan of care
[2019-12-01] MEDS ORDERED: ATROPINE SULF 1 MG/10ml SYR IV ONE (13:48)
[2019-12-01] MEDS ORDERED: EPINEPHrine HCL 1 MG/10 ML SYRG IV ONE (13:48)
[2019-12-01] MEDS ORDERED: SODIUM BICARBONATE 8.4% INJ 50ML SYRINGE IV ONE (13:48)
== END 2019-12-01 16:50 | disposition expired | DRG 710 ==
LOC: ER 16:59 → TELE 17:00 → ICU WEST 11-07 17:12
PROVIDERS: ADMIT Nurse Practitioner; ATTEND Internal Medicine
PROC: 5A1955Z Respiratory Ventilation, Greater than 96 Consecutive Hours (ICD-10-PCS; 2019-11-06)
PROC: 0BH17EZ Insertion of Endotracheal Airway into Trachea, Via Natural or Artificial Opening (ICD-10-PCS; 2019-11-06)
PROC: 02HV33Z Insertion of Infusion Device into Superior Vena Cava, Percutaneous Approach (ICD-10-PCS; 2019-11-12)
PROC: 02HV33Z Insertion of Infusion Device into Superior Vena Cava, Percutaneous Approach (ICD-10-PCS; 2019-11-14)
PROC: 5A1D70Z Performance of Urinary Filtration, Intermittent, Less than 6 Hours Per Day (ICD-10-PCS; 2019-11-15)
PROC: 5A1D70Z Performance of Urinary Filtration, Intermittent, Less than 6 Hours Per Day (ICD-10-PCS; 2019-11-17)
PROC: 5A1D70Z Performance of Urinary Filtration, Intermittent, Less than 6 Hours Per Day (ICD-10-PCS; 2019-11-19)
PROC: 0W9B30Z Drainage of Left Pleural Cavity with Drainage Device, Percutaneous Approach (ICD-10-PCS; 2019-11-20)
PROC: 5A1D70Z Performance of Urinary Filtration, Intermittent, Less than 6 Hours Per Day (ICD-10-PCS; 2019-11-22)
PROC: 5A1D70Z Performance of Urinary Filtration, Intermittent, Less than 6 Hours Per Day (ICD-10-PCS; 2019-11-23)
PROC: 5A1D70Z Performance of Urinary Filtration, Intermittent, Less than 6 Hours Per Day (ICD-10-PCS; 2019-11-24)
PROC: 5A1D70Z Performance of Urinary Filtration, Intermittent, Less than 6 Hours Per Day (ICD-10-PCS; 2019-11-27)
PROC: 027035Z Dilation of Coronary Artery, One Artery with Two Drug-eluting Intraluminal Devices, Percutaneous Approach (ICD-10-PCS; principal; 2019-11-28)
PROC: 02HA3RZ Insertion of Short-term External Heart Assist System into Heart, Percutaneous Approach (ICD-10-PCS; 2019-11-28)
PROC: 5A0221D Assistance with Cardiac Output using Impeller Pump, Continuous (ICD-10-PCS; 2019-11-28)
PROC: 4A023N7 Measurement of Cardiac Sampling and Pressure, Left Heart, Percutaneous Approach (ICD-10-PCS; 2019-11-28)
PROC: B2111ZZ Fluoroscopy of Multiple Coronary Arteries using Low Osmolar Contrast (ICD-10-PCS; 2019-11-28)
PROC: B2151ZZ Fluoroscopy of Left Heart using Low Osmolar Contrast (ICD-10-PCS; 2019-11-28)
PROC: 5A1223Z Performance of Cardiac Pacing, Continuous (ICD-10-PCS; 2019-11-28)
PROC: 5A1D70Z Performance of Urinary Filtration, Intermittent, Less than 6 Hours Per Day (ICD-10-PCS; 2019-11-29)
DX: A41.9 Sepsis, unspecified organism (principal); G93.41 Metabolic encephalopathy; E11.10 Type 2 diabetes mellitus with ketoacidosis without coma; I50.43 Acute on chronic combined systolic (congestive) and diastolic (congestive) heart failure; J69.0 Pneumonitis due to inhalation of food and vomit; J96.01 Acute respiratory failure with hypoxia; J96.02 Acute respiratory failure with hypercapnia; N17.0 Acute kidney failure with tubular necrosis; N18.6 End stage renal disease; R65.21 Severe sepsis with septic shock; D68.69 Other thrombophilia; E44.0 Moderate protein-calorie malnutrition; E87.1 Hypo-osmolality and hyponatremia; E87.3 Alkalosis; I13.2 Hypertensive heart and chronic kidney disease with heart failure and with stage 5 chronic kidney disease, or end stage renal disease; I47.2 Ventricular tachycardia; I48.20 Chronic atrial fibrillation, unspecified; I48.92 Unspecified atrial flutter; Z99.11 Dependence on respirator [ventilator] status; J90 Pleural effusion, not elsewhere classified; D63.1 Anemia in chronic kidney disease; D69.6 Thrombocytopenia, unspecified; E11.22 Type 2 diabetes mellitus with diabetic chronic kidney disease; E11.649 Type 2 diabetes mellitus with hypoglycemia without coma; E66.9 Obesity, unspecified; Z68.34 Body mass index [BMI] 34.0-34.9, adult; I25.5 Ischemic cardiomyopathy; I67.2 Cerebral atherosclerosis; K57.90 Diverticulosis of intestine, part unspecified, without perforation or abscess without bleeding; F41.9 Anxiety disorder, unspecified; N20.0 Calculus of kidney; R57.0 Cardiogenic shock; Z20.828 Contact with and (suspected) exposure to other viral communicable diseases; Z82.49 Family history of ischemic heart disease and other diseases of the circulatory system; Z99.2 Dependence on renal dialysis; R74.0 Nonspecific elevation of levels of transaminase and lactic acid dehydrogenase [LDH]; I21.4 Non-ST elevation (NSTEMI) myocardial infarction
CPT/HCPCS: 10022; 31500; 36415; 36556; 36600; 51702; 70450; 71045; 74176; 76604; 76775; 76942; 80048; 80053; 80061; 80074; 80162; 80202; 80307; 81001; 82010; 82533; 82550; 82570; 82728; 82805; 82962; 83540; 83550; 83605; 83615; 83690; 83735; 83880; 84300; 84443; 84484; 85007; 85014; 85018; 85025; 85027; 85379; 85610; 85730; 87040; 87070; 87081; 87205; 89051; 90935; 93005; 93306; 93970; 94002; 94003; 94640; 96361; 96374; 96375; 96376; 99152; 99153; 99291; C1751; C1874; C1887; C9113; G0378; J0330; J0696; J0885; J1642; J1815; J2250; J2543; J2704; J3480; J3490; J7042; J7060; P9047; Q9967